=== PATIENT | male | born 1985 | race Hispanic/Latino ===

== ENCOUNTER 2018-10-04 16:03 | Emergency (ER) | payer SELFPAY ==
[2018-10-04] MEDS ORDERED: NA CHLORIDE 0.9% 2,000 ML ONE (16:33)
[2018-10-04 16:44] LABS: Absolute Lymphocytes (CBC) 0.3 K/uL (0.7-4.9); Basophils % 0.2 % (0-1.3); Eosinophils % 3.4 % (0-4.4); Hematocrit 39.4 % (39.6-49.0); Lymphocytes % 3.6 % (15.3-44.8); MPV 7.6 fL (7.6-11.3); Monocytes % 10.6 % (3.3-12.3); RBC Red Blood Cell Count 4.47 M/uL (4.33-5.43)
[2018-10-04] MEDS ORDERED: ACETAMINOPHEN 500 MG TAB ONE (16:48)
[2018-10-04] MEDS ORDERED: CEFTRIAXONE/SWI 1gm 1 GM/10 ML SYR ONE (16:48)
[2018-10-04 17:05] LABS: ALT/SGPT 17 U/L (12-78); AST/SGOT 13 U/L (15-37); Albumin 3.3 g/dL (3.4-5.0); Alkaline Phosphatase 108 U/L (45-117); BUN Blood Urea Nitrogen 18 mg/dL (7-18); Bicarbonate 24 mmol/L (21-32); Bilirubin Direct 0.1 mg/dL (0-0.2); Bilirubin Total 0.4 mg/dL (0.2-1.0); CKMB Creatine Kinase MB < 1.0 ng/mL (0.3-3.6); Creatine Phosphokinase 52 U/L (39-308); Glucose Level 126 mg/dL (74-106); Lipase 95 U/L (73-393); Potassium 3.7 mmol/L (3.5-5.1); Sodium Level 141 mmol/L (136-145); Troponin (Emerg Dept Use Only) < 0.02 ng/mL (0.0-0.045)
[2018-10-04 17:08] LABS: Urine Blood 2+ (NEG); Urine Glucose NEGATIVE (NEG); Urine Protein 2+ (NEG); Urine Specific Gravity >1.030 (1.005-1.030)
[2018-10-04 17:09] LABS: Protime INR 1.21
[2018-10-04 17:11] LABS: Urine Bacteria >50 /HPF (NONE SEEN); Urine Culture Reflex Order NOT NEEDED
--- NOTE | 2018-10-04 17:36 | RAD REPORT ---
EXAM DESCRIPTION: [place] Single View10/04/2018 4:41 pm CLINICAL HISTORY: fever COMPARISON: none FINDINGS: The lungs appear clear of acute infiltrate. The heart is normal size IMPRESSION: No acute abnormalities displayed
--- NOTE | 2018-10-04 18:04 | RAD REPORT ---
EXAM DESCRIPTION: CT - Abdomen Pelvis Wo Contrast - 10/04/2018 5:27 pm CLINICAL HISTORY: Abdominal pain dysuria COMPARISON: None TECHNIQUE: Computed axial tomography of the abdomen and pelvis was obtained. IV and oral contrast we re not requested. All CT scans are performed using dose optimization technique as appropriate and may include automated exposure control or mA/KV adjustment according to patient size. FINDINGS: The evaluation of solid organs, vessels and bowel is limited secondary to the lack of con trast administration. A 3 centimeter staghorn calculus. Left kidney is enlarged. . Dilated calices with stranding in the pe rirenal fat. This has the appearance of xanthogranulomatous pyelonephritis. Mild dilatation left yee l pelvis 1 centimeter calculus right renal pelvis with mild hydronephrosis. A couple of air bubbles are presen t within the collecting system and right ureter. 2.3 centimeter bladder calculus. Left periureteral s tranding A large amount stool is present throughout the colon. The rectum is distended with stool. IMPRESSION: 1 centimeter right renal calculus resulting in mild right hydronephrosis. Air bubbles w ithin the collecting system and right ureter consistent with infection. Left xanthogranulomatous pyelonephritis Bladder calculus Fecal impaction suspected
[2018-10-04] MEDS ORDERED: NA CHLORIDE 0.9% 1,000 ML ONE (18:14)
--- NOTE | 2018-10-04 18:28 | ER ---
Nurse's Notes [facility] Name: Neo Austin Age: 32 yrs Sex: Male : 1985 Arrival Date: 10/04/2018 Time: 16:04 Bed 5 Private MD: Diagnosis: Hydronephrosis with right renal calculous;Urosepsis;Left xanthogranulomatous pyelonephritis;Fecal impaction Presentation: 10/04 16:08 Presenting complaint: Burning with urination and subjective fever x 2 days. Transition hb of care: patient was not received from another setting of care. Onset of symptoms was October 03, 2018. Risk Assessment: Do you want to hurt yourself or someone else? Patient reports no desire to harm self or others. Care prior to arrival: None. 16:08 Method Of Arrival: Wheelchair hb 16:08 Acuity: SPRING 2 hb Historical: - Allergies: 16:11 No Known Allergies; hb - Home Meds: 16:11 None [Active]; hb - PMHx: 16:11 None; hb - PSHx: 16:11 None; hb - Immunization history:: Adult Immunizations up to date. - Social history:: Smoking status: Patient/guardian denies using tobacco. - Ebola Screening: : No symptoms or risks identified at this time. Screenin:53 Abuse screen: Denies threats or abuse. Denies injuries from another. Nutritional aj screening: No deficits noted. Tuberculosis screening: No symptoms or risk factors identified. Fall Risk None identified. Assessment: 16:53 General: Appears in no apparent distress. comfortable, Behavior is calm, cooperative, aj appropriate for age. Pain: Complains of pain in face and scalp. Neuro: Level of Consciousness is awake, alert, obeys commands, Oriented to person, place, time, situation, Appropriate for age. Respiratory: Airway is patent Respiratory effort is even, unlabored, Respiratory pattern is regular, symmetrical. Derm: Skin is intact, is healthy with good turgor, Skin is pink, warm \T\ dry. normal. 19:00 General: Appears in no apparent distress. comfortable, Behavior is calm, cooperative, rr5 appropriate for age. Pain: Denies pain. Neuro: Level of Consciousness is awake, alert, obeys commands, Oriented to person, place, time, situation, Appropriate for age Facial symmetry appears normal, paraplegic. 19:00 Cardiovascular: Capillary refill < 3 seconds Patient's skin is warm and dry. rr5 Respiratory: Airway is patent Respiratory effort is even, unlabored, Respiratory pattern is regular, symmetrical. GI: No signs and/or symptoms were reported involving the gastrointestinal system. : Reports burning with urination, pain with urination. EENT: No signs and/or symptoms were reported regarding the EENT system. Derm: Skin is intact, dry wound sacral and left and right trochanteric area Skin temperature is warm. Musculoskeletal: Capillary refill < 3 seconds, paraplegic. 19:45 Reassessment: unable to insert Judge catheter coud used still positive resistance ED rr5 provider aware. 20:10 Reassessment: Vitaliy from pending sale to [facility] accepted the case. rr5 20:27 Reassessment: Patient appears in no apparent distress at this time. Patient is alert, rr5 oriented x 3, equal unlabored respirations, skin warm/dry/pink. awaiting for EMS transport no complaints made. 20:58 Reassessment: Patient appears in no apparent distress at this time. Patient is alert, rr5 oriented x 3, equal unlabored respirations, skin warm/dry/pink. endorsed to [facility] vitally stable, breathing spontaneously at room air. IV cannula G20 at right forearm intact ongoing NS at 125ml/hr and vancomycin 1G/IV infusing well. Vital Signs: 16:09 BP 84 / 50; Pulse 132; Resp 20; Temp 101.7(TE); Pulse Ox 97% on R/A; Weight 68.04 kg; hb Height 5 ft. 5 in. (165.10 cm); Pain 7/10; 17:11 BP 97 / 52; Pulse 106; Resp 21; Temp 99.0(O); Pulse Ox 100% on R/A; aj 17:56 BP 91 / 53; Pulse 90; Resp 20 S; Pulse Ox 100% on R/A; iw 18:56 BP 131 / 84; Pulse 102; Resp 18; Pulse Ox 99% on R/A; aj 20:00 BP 125 / 75; Pulse 110; Resp 19; Temp 99.2; Pulse Ox 99% ; rr5 21:00 BP 95 / 60; Pulse 108; Resp 19; Pulse Ox 99% on R/A; rr5 16:09 Body Mass Index 24.96 (68.04 kg, 165.10 cm) hb ED Course: 16:04 Patient arrived in ED. as 16:09 Triage completed. hb 16:09 Arm band placed on. hb 16:14 Amy Sneed, RN is Primary Nurse. aj 16:18 James Guerrero NP is PHCP. pm1 16:18 Sudheer Grewal MD is Attending Physician. pm1 16:29 Radiology exam delayed due to lab results not completed at this time. (BUN/Creatinine). sj 16:40 Chest Single View XRAY In Process Unspecified. EDMS 16:53 Patient has correct armband on for positive identification. aj 16:53 Inserted saline lock: 22 gauge in right antecubital area, using aseptic technique. aj Blood collected. 17:06 Radiology exam delayed due to lab results not completed at this time. (BUN/Creatinine). nj 17:28 Abdomen In Process Unspecified. EDMS 18:31 initiated a transfer with Amber Gayle RN from the [facility]. eb 19:04 Aaron Tavera, RN is Primary Nurse. rr5 21:35 No provider procedures requiring assistance completed. Patient transferred, IV remains rr5 in place. intact, No redness/swelling at site. Administered Medications: 16:52 Drug: NS 0.9% (30 ml/kg) 30 ml/kg Route: IV; Rate: bolus; Site: right antecubital; aj 17:15 Follow up: Response: No adverse reaction; Temperature is decreased; IV Status: Infusion aj continued; IV Intake: 1000ml 16:52 Drug: Rocephin 1 grams Route: IV; Rate: calculated rate; Site: right antecubital; aj 17:15 Follow up: Response: No adverse reaction; IV Status: Completed infusion; IV Intake: 10mlaj 16:52 Drug: Tylenol 1000 mg Route: PO; aj 17:15 Follow up: Response: Temperature is decreased aj 18:01 Drug: NS 0.9% 1000 ml Route: IV; Rate: 125 ml/hr; Site: right forearm; iw 19:11 Drug: Gentamicin 1 mg/kg Route: IVPB; Infused Over: 30 mins; Site: right antecubital; rr5 19:49 Follow up: Response: No adverse reaction; IV Status: Completed infusion; IV Intake: rr5 100ml 19:49 Drug: Meropenem 1 grams Route: IV; Rate: calculated rate; Site: right forearm; rr5 20:20 Follow up: Response: No adverse reaction; IV Status: Completed infusion; IV Intake: rr5 100ml 20:24 Dru grams of (vancoMYCIN 1 grams, NS 0.9% 250 ml) Route: IVPB; Infused Over: 2 hrs; rr5 Site: right forearm; Intake: 17:15 IV: 1000ml; Total: 1000ml. aj 17:15 IV: 10ml; Total: 1010ml. aj 19:49 IV: 100ml; Total: 1110ml. rr5 20:20 IV: 100ml; Total: 1210ml. rr5 Outcome: 18:28 ER care complete, transfer ordered by MD. pm1 21:35 Transferred by ground EMS to [facility], Transfer form completed. rr5 21:35 Condition: stable 21:35 Instructed on the need for transfer. 21:39 Patient left the ED. rr5 Signatures: Dispatcher [employer] EDAmy Glaser RN Taylor Landis Amelia as Williams, Irene, RN RN iw Marinas, Patrick, WAYNE GARAGE WORKER pm1 Dorothy Montgomery RN RN hb Jordan, Nathan nj Botello, Elizabeth eb Roque, Raymond RN RN rr5 Corrections: (The following items were deleted from the chart) 17:14 17:11 BP 97 / 52; Pulse 106bpm; Resp 21bpm; Pulse Ox 100% RA; evan gordon
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
[2018-10-04] MEDS ORDERED: GENTAMICIN IVPB ONE (19:00)
[2018-10-04] MEDS ORDERED: NA CHLORIDE 0.9% IVPB ONE (19:00)
[2018-10-04] MEDS ORDERED: Meropenem 1 GM/100 ML BAG ONE (19:42)
[2018-10-04] MEDS ORDERED: NA CHLORIDE 0.9% 250 ML ONE (20:10)
[2018-10-04] MEDS ORDERED: VANCOMYCIN 1 GM/VIAL ONE (20:10)
--- NOTE | 2018-10-05 15:39 | EKG ---
Test Date: 2018-10-04 Test Time: 16:27:54 Auto Bumper Mechanic: POLINA MEASUREMENT RESULTS: Intervals: Rate: 121 OK: 162 QRSD: 86 QT: 314 QTc: 445 [place]: P: 62 OK: 162 QRS: 81 T: 41 INTERPRETIVE STATEMENTS: Sinus tachycardia Nonspecific T wave abnormality Abnormal ECG No previous ECG available for comparison Electronically Signed On 10-05-18 15:35:40 CDT by Chad Stein
== END 2018-10-04 21:39 | disposition short-term general hospital (02) ==
LOC: ER 16:03
DX: N13.30 Unspecified hydronephrosis (principal); N20.0 Calculus of kidney; D76.3 Other histiocytosis syndromes
CPT/HCPCS: 36415; 71045; 74176; 80048; 80076; 81003; 81015; 82550; 82553; 83605; 83690; 84145; 84484; 85025; 85610; 85730; 87040; 87077; 87086; 87088; 87186; 93005; 99285; J0696; J1580; J2185; J7030

== ENCOUNTER 2018-12-03 14:07 | Emergency (ER) | payer SELFPAY ==
--- OUTSIDE RECORDS SUMMARY | 2018-12-03 14:10 | XMS REPORT | Clinical Summary ---
:1985 Author Organization [facility] Address [address] [place] [address] Care Team Providers Name Role Phone Pcp, No Primary Care Provider Unavailable Allergies No Known Allergies Medications Medication Sig Dispensed Refills Start Date End Date Status acetaminophen Take 325 mg by 0 Active (TYLENOL) 325 MG mouth as needed tablet for Pain. ciprofloxacin HCl Take 1 tablet (750 42 tablet 0 10/13/2018 11/03/2018 (CIPRO) 750 MG mg total) by mouth tablet every 12 (twelve) hours for 21 days. sulfamethoxazole-tri Take 1 tablet (160 42 tablet 0 10/13/2018 11/03/2018 methoprim (BACTRIM mg of trimethoprim DS) 800-160 mg per total) by mouth 2 tablet (two) times daily for 21 days. 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/07/2018 Fever 10/07/2018 [place]aghorn calculus 10/07/2018 Nephrostomy status 10/07/2018 Hyponatremia 10/07/2018 Confined to bed 10/07/2018 Hypomagnesemia 10/06/2018 Acute blood loss anemia 10/06/2018 Leukocytosis 10/06/2018 Sepsis secondary to UTI 10/04/2018 Hydronephrosis with urinary obstruction due to renal calculus 10/04/2018 Encounters Date Type Specialty Care Team Description 10/04/2018 - [facility] Internal Teja, Kriag Acute blood loss anemia ; 10/13/2018 Encounter Medicine MD Mildred Hydronephrosis with urinary obstruction due to renal calculus; Nancy Silvermanagnpam; MD Mikie Leukocytosis, unspecified type; Rosanna Bowles Sepsis secondary to UTI (HCC); MD Graciela Hypophosphatemia; Paraplegia (HCC); Sepsis, due to unspecified organism (HCC); Nausea and vomiting, intractability of vomiting not specified, unspecified vomiting type; Nephrolithiasis after 12/02/2017 Social History Tobacco Use Types Packs/Day Years Used Date Light Tobacco Smoker Smokeless Tobacco: Never Used Alcohol Use Drinks/Week oz/Week Comments No Alcohol Habits Answer Date Recorded How often do you have a drink containing alcohol? Never 10/05/2018 How many drinks containing alcohol do you have on a typical Not asked day when you are drinking? How often do you have six or more drinks on one occasion? Not asked Sex Assigned at Date Recorded Not on file Job Start Date Occupation Industry Not on file Not on file Not on file Travel History Travel Start Travel End No recent travel history available. Last Filed Vital Signs Vital Sign Reading Time Taken Blood Pressure 87/53 10/13/2018 3:40 PM CDT Pulse 91 10/13/2018 7:30 PM CDT Temperature 35.6 C (96.1 F) 10/13/2018 8:15 AM CDT Respiratory Rate 18 10/13/2018 7:30 PM CDT Oxygen Saturation 98% 10/13/2018 7:30 PM CDT Inhaled Oxygen Concentration 21% 10/09/2018 5:50 PM CDT Weight 56.6 kg (124 lb 12.5 oz) 10/08/2018 6:00 AM CDT Height 167.6 cm (5' 6") 10/05/2018 12:00 AM CDT Body Mass Index 20.14 10/08/2018 6:00 AM CDT Plan of Treatment Not on file Procedures Procedure Name Priority Date/Time Associated Comments Diagnosis REPORT OF PROCEDURE - 10/15/2018 9:41 ENDOSCOPY SCAN AM CDT RHYTHM STRIP - SCAN 10/15/2018 9:41 AM CDT BLOOD CULTURE Routine 2018 6:05 Results for this PM CDT procedure are in the results section. BLOOD CULTURE Routine 2018 6:04 Results for this PM CDT procedure are in the results section. (CELLAVISION MANUAL Routine 2018 4:33 Results for this DIFF) AM CDT procedure are in the results section. CBC W/PLT COUNT & Routine 2018 4:33 Results for this AUTO DIFFERENTIAL AM CDT procedure are in the results section. MAGNESIUM Routine 2018 4:33 Results for this AM CDT procedure are in the results section. CBC W/PLT COUNT & Routine 2018 4:33 Results for this AUTO DIFFERENTIAL AM CDT procedure are in the results section. CALCIUM, IONIZED Routine 2018 4:33 Results for this AM CDT procedure are in the results section. BASIC METABOLIC PANEL Routine 2018 4:33 Results for this (7) AM CDT procedure are in the results section. VANCOMYCIN LEVEL, Timed 10/10/2018 1:14 Results for this TROUGH PM CDT procedure are in the results section. (CELLAVISION MANUAL Routine 10/10/2018 5:35 Results for this DIFF) AM CDT procedure are in the results section. CBC W/PLT COUNT & Routine 10/10/2018 5:35 Results for this AUTO DIFFERENTIAL AM CDT procedure are in the results section. MAGNESIUM Routine 10/10/2018 5:35 Results for this AM CDT procedure are in the results section. CBC W/PLT COUNT & Routine 10/10/2018 5:35 Results for this AUTO DIFFERENTIAL AM CDT procedure are in the results section. CALCIUM, IONIZED Routine 10/10/2018 5:35 Results for this AM CDT procedure are in the results section. BASIC METABOLIC PANEL Routine 10/10/2018 5:35 Results for this (7) AM CDT procedure are in the results section. VANCOMYCIN LEVEL, Timed 10/10/2018 5:35 Results for this TROUGH AM CDT procedure are in the results section. (CELLAVISION MANUAL Routine 10/09/2018 4:07 Results for this DIFF) AM CDT procedure are in the results section. CBC W/PLT COUNT & Routine 10/09/2018 4:07 Results for this AUTO DIFFERENTIAL AM CDT procedure are in the results section. CBC W/PLT COUNT & Routine 10/09/2018 4:07 Results for this AUTO DIFFERENTIAL AM CDT procedure are in the results section. CALCIUM, IONIZED Routine 10/09/2018 4:07 Results for this AM CDT procedure are in the results section. BASIC METABOLIC PANEL Routine 10/09/2018 4:07 Results for this (7) AM CDT procedure are in the results section. PHOSPHORUS Routine 10/09/2018 4:07 Results for this AM CDT procedure are in the results section. MAGNESIUM Routine 10/09/2018 4:07 Results for this AM CDT procedure are in the results section. PHOSPHORUS Routine 10/08/2018 6:01 Results for this PM CDT procedure are in the results section. MAGNESIUM Routine 10/08/2018 6:01 Results for this PM CDT procedure are in the results section. BASIC METABOLIC PANEL Routine 10/08/2018 6:01 Results for this (7) PM CDT procedure are in the results section. VANCOMYCIN LEVEL, Timed 10/08/2018 11:04 Results for this TROUGH AM CDT procedure are in the results section. PHOSPHORUS Routine 10/08/2018 11:04 Results for this AM CDT procedure are in the results section. MAGNESIUM Routine 10/08/2018 11:04 Results for this AM CDT procedure are in the results section. XR ABDOMEN 1 VIEW STAT 10/08/2018 10:16 Results for this AM CDT procedure are in the results section. PHOSPHORUS Routine 10/08/2018 4:29 Results for this AM CDT procedure are in the results section. MAGNESIUM Routine 10/08/2018 4:29 Results for this AM CDT procedure are in the results section. BASIC METABOLIC PANEL Routine 10/08/2018 4:29 Results for this (7) AM CDT procedure are in the results section. CBC (HEMOGRAM ONLY) Routine 10/08/2018 4:29 Results for this AM CDT procedure are in the results section. POCT-GLUCOSE METER Routine 10/08/2018 12:05 Results for this AM CDT procedure are in the results section. PHOSPHORUS Routine 10/07/2018 10:40 Results for this PM CDT procedure are in the results section. MAGNESIUM Routine 10/07/2018 10:40 Results for this PM CDT procedure are in the results section. BASIC METABOLIC PANEL Routine 10/07/2018 10:40 Results for this (7) PM CDT procedure are in the results section. PHOSPHORUS Routine 10/07/2018 12:42 Results for this PM CDT procedure are in the results section. MAGNESIUM Routine 10/07/2018 12:42 Results for this PM CDT procedure are in the results section. BASIC METABOLIC PANEL Routine 10/07/2018 12:42 Results for this (7) PM CDT procedure are in the results section. PHOSPHORUS Routine 10/07/2018 7:08 Results for this AM CDT procedure are in the results section. MAGNESIUM Routine 10/07/2018 7:08 Results for this AM CDT procedure are in the results section. BASIC METABOLIC PANEL Routine 10/07/2018 7:08 Results for this (7) AM CDT procedure are in the results section. CBC (HEMOGRAM ONLY) Routine 10/07/2018 5:01 Results for this AM CDT procedure are in the results section. PHOSPHORUS Routine 10/06/2018 11:56 Results for this PM CDT procedure are in the results section. MAGNESIUM Routine 10/06/2018 11:56 Results for this PM CDT procedure are in the results section. BASIC METABOLIC PANEL Routine 10/06/2018 11:56 Results for this (7) PM CDT procedure are in the results section. PHOSPHORUS Routine 10/06/2018 6:28 Results for this PM CDT procedure are in the results section. MAGNESIUM Routine 10/06/2018 6:28 Results for this PM CDT procedure are in the results section. BASIC METABOLIC PANEL Routine 10/06/2018 6:28 Results for this (7) PM CDT procedure are in the results section. CREATININE, RANDOM Routine 10/06/2018 12:43 Results for this URINE PM CDT procedure are in the results section. SODIUM, RANDOM URINE Routine 10/06/2018 12:43 Results for this PM CDT procedure are in the results section. OSMOLALITY, URINE Routine 10/06/2018 12:43 Results for this PM CDT procedure are in the results section. PHOSPHORUS Routine 10/06/2018 10:48 Results for this AM CDT procedure are in the results section. VANCOMYCIN LEVEL, Timed 10/06/2018 10:48 Results for this TROUGH AM CDT procedure are in the results section. MAGNESIUM Routine 10/06/2018 10:48 Results for this AM CDT procedure are in the results section. BASIC METABOLIC PANEL Routine 10/06/2018 10:48 Results for this (7) AM CDT procedure are in the results section. BASIC METABOLIC PANEL Routine 10/06/2018 6:03 Results for this (7) AM CDT procedure are in the results section. PHOSPHORUS Routine 10/06/2018 6:03 Results for this AM CDT procedure are in the results section. MAGNESIUM Routine 10/06/2018 6:03 Results for this AM CDT procedure are in the results section. CALCIUM, IONIZED Routine 10/06/2018 3:08 Results for this AM CDT procedure are in the results section. CBC (HEMOGRAM ONLY) Routine 10/06/2018 3:08 Results for this AM CDT procedure are in the results section. CBC (HEMOGRAM ONLY) Routine 10/05/2018 11:06 Results for this PM CDT procedure are in the results section. MAGNESIUM Routine 10/05/2018 11:06 Results for this PM CDT procedure are in the results section. PHOSPHORUS Routine 10/05/2018 11:06 Results for this PM CDT procedure are in the results section. BASIC METABOLIC PANEL Routine 10/05/2018 11:06 Results for this (7) PM CDT procedure are in the results section. IR PERCUTANEOUS Routine 10/05/2018 8:10 Results for this NEPHROSTOMY TUBE PM CDT procedure are in PLACEMENT the results section. URINE CULTURE Routine 10/05/2018 7:55 Results for this PM CDT procedure are in the results section. APTT Add-On 10/05/2018 12:50 Results for this PM CDT procedure are in the results section. PROTHROMBIN TIME/INR STAT 10/05/2018 12:50 Results for this PM CDT procedure are in the results section. PHOSPHORUS Routine 10/05/2018 12:28 Results for this PM CDT procedure are in the results section. MAGNESIUM Routine 10/05/2018 12:28 Results for this PM CDT procedure are in the results section. BASIC METABOLIC PANEL Routine 10/05/2018 12:28 Results for this (7) PM CDT procedure are in the results section. LACTIC ACID, VENOUS Routine 10/05/2018 3:43 Results for this AM CDT procedure are in the results section. CBC W/PLT COUNT & Routine 10/05/2018 3:37 Results for this AUTO DIFFERENTIAL AM CDT procedure are in the results section. PHOSPHORUS Routine 10/05/2018 3:37 Results for this AM CDT procedure are in the results section. MAGNESIUM Routine 10/05/2018 3:37 Results for this AM CDT procedure are in the results section. BASIC METABOLIC PANEL Routine 10/05/2018 3:37 Results for this (7) AM CDT procedure are in the results section. CBC W/PLT COUNT & Routine 10/05/2018 3:37 Results for this AUTO DIFFERENTIAL AM CDT procedure are in the results section. BLOOD CULTURE Routine 10/05/2018 12:25 Results for this AM CDT procedure are in the results section. CBC W/PLT COUNT & Routine 10/04/2018 11:30 Results for this AUTO DIFFERENTIAL PM CDT procedure are in the results section. HEPATIC FUNCTION Routine 10/04/2018 11:30 Results for this PANEL PM CDT procedure are in the results section. URINALYSIS W/ REFLEX Routine 10/04/2018 11:30 Results for this URINE CULTURE PM CDT procedure are in the results section. PHOSPHORUS Routine 10/04/2018 11:30 Results for this PM CDT procedure are in the results section. MAGNESIUM Routine 10/04/2018 11:30 Results for this PM CDT procedure are in the results section. LACTIC ACID, VENOUS Routine 10/04/2018 11:30 Results for this PM CDT procedure are in the results section. CALCIUM, IONIZED Routine 10/04/2018 11:30 Results for this PM CDT procedure are in the results section. BASIC METABOLIC PANEL Routine 10/04/2018 11:30 Results for this (7) PM CDT procedure are in the results section. CBC W/PLT COUNT & Routine 10/04/2018 11:30 Results for this AUTO DIFFERENTIAL PM CDT procedure are in the results section. URINE CULTURE Routine 10/04/2018 11:30 Results for this PM CDT procedure are in the results section. BLOOD CULTURE Routine 10/04/2018 11:29 Results for this PM CDT procedure are in the results section. after 12/02/2017 Results EKG-SCANNED (10/15/2018 9:41 AM CDT) Narrative Performed At RHYTHM STRIP - SCAN (10/15/2018 9:41 AM CDT) Narrative Performed At Blood Culture - Routine (Right Venipuncture) (2018 6:05 PM CDT)Only the most recent of4 resultswithin the time period is included. Result No growth in 5 days [facility] Specimen Blood Performing Organization Address City/State/Zipcode Phone Number [facility] [address] [place] [address] CENTER Manual Differential (2018 4:33 AM CDT)Only the most recent of3 resultswithin the time period is included. % Neutros 35 % [facility] % Lymphs 31 % [facility] % Monos 20 % [facility] % Eos 10 % [facility] % Baso 1 % [facility] % Atypical Lymphs 3 (H) 0 - 0 % [facility] # Neutros 1.44 (L) 1.78 - 5.38 K/ul [facility] # Lymphs 1.27 (L) 1.32 - 3.57 K/ul [facility] # Monos 0.82 0.30 - 0.82 K/uL [facility] # Eos 0.41 0.04 - 0.54 K/uL [facility] # Baso 0.04 0.01 - 0.08 K/uL [facility] # Atypical Lymphs 0.12 (H) 0.00 - 0.00 K/uL [facility] Total Counted 100 [facility] Smudge Cells Present [facility] Giant [facility]let Present [facility] Polychromasia 1+ few [facility] Anisocytosis 1+ few [facility] Microcytes 1+ few [facility] Platelet Conc Adequate [facility] Specimen Blood Narrative Performed At Received comment: [facility] User comments: Slide comments: Performing Organization Address City/State/Zipcode Phone Number [facility] [address] [place] [address] [phone] CENTER Calcium, Ionized (2018 4:33 AM CDT)Only the most recent of5 resultswithin the time period is included. Calcium, Ion 1.11 (L) 1.12 - 1.27 mmol/L [facility] pH, Blood 7.41 [facility] Specimen Blood Performing Organization Address City/State/Zipcode Phone Number [address] [address] CENTER CBC with platelet count + automated diff (2018 4:33 AM CDT)Only the most recent of5 resultswithin the time period is included. WBC 4.1 3.5 - 10.5 K/L [facility] RBC 4.24 (L) 4.63 - 6.08 M/L [facility] Hemoglobin 12.1 (L) 13.7 - 17.5 GM/DL [facility] Hematocrit 36.6 (L) 40.1 - 51.0 % [facility] MCV 86.3 79.0 - 92.2 fL [facility] MCH 28.5 25.7 - 32.2 pg [facility] MCHC 33.1 32.3 - 36.5 GM/DL [facility] RDW 14.1 11.6 - 14.4 % [facility] Platelets 202 150 - 450 K/CU MM [facility] MPV 9.9 9.4 - 12.4 fL [facility] nRBC 0 0 - 0 /100 WBC [facility] Specimen Blood Performing Organization Address City/State/Zipcode Phone Number [address] [address] CENTER Magnesium (2018 4:33 AM CDT)Only the most recent of17 resultswithin the time period is included. Magnesium 1.6 1.6 - 2.6 mg/dL [facility] Specimen Blood Performing Organization Address City/[facility]/Zipcode Phone Number [address] [address] [phone] [place] Basic Metabolic Panel (2018 4:33 AM CDT)Only the most recent of16 resultswithin the time period is included. Sodium 135 (L) 136 - 145 meq/L [facility] Potassium 4.6 3.5 - 5.1 meq/L [facility] Chloride 102 98 - 107 meq/L [facility] CO2 26 22 - 29 meq/L [facility] BUN 6 (L) 7 - 21 mg/dL [facility] Creatinine 0.83 0.57 - 1.25 mg/dL [facility] Glucose 93 70 - 105 mg/dL [facility] Calcium 8.9 8.4 - 10.2 mg/dL [facility] EGFR 107Comment: ESTIMATED GFR IS mL/min/1.73 sq m [facility] NOT ACCURATE CREATININE [facility] CLEARANCE IN PREDICTING GLOMERULAR FILTRATION RATE. ESTIMATED GFR IS NOT APPLICABLE FOR DIALYSIS PATIENTS. Specimen Blood Performing Organization Address [facility]/[place] [address] [place] Vancomycin level, trough (10/10/2018 1:14 PM CDT)Only the most recent of4 resultswithin the time period is included. Vancomycin Tr 18.9 10.0 - 20.0 ug/mL [facility] Specimen Blood Performing Organization Address City/[facility] Hospital[facility] Phone Number [address] [phone] CENTER Phosphorus (10/09/2018 4:07 AM CDT)Only the most recent of15 resultswithin the time period is included. Phosphorus 2.2 (L)Comment: Specimen 2.3 - 4.7 mg/dL [facility] slightly hemolyzed [facility] Specimen Blood Performing Organization Address City/[facility] Hospitalcode Phone Number [facility] [address], [place] [id number] [phone] CENTER XR abdomen / KUB 1 view (10/08/2018 10:16 AM CDT) Specimen Narrative Performed At FINAL REPORT [employer] RAD, ABDOMEN/KUB 1 VIEW AP CLINICAL INDICATION:nausea, vomiting COMPARISON: Correlation to CT examination October 04, 2018 obtained by [employer] TECHNIQUE: Single, frontal radiograph of the abdomen. IMPRESSION: The bowel gas pattern is nonspecific, but nonobstructive. A moderate stool burden is present. No abnormal mass or ascites is detected. Large stones are present bilaterally and collecting systems, incompletely viewed. Bilateral percutaneous nephrostomy tubes are present, and have been placed in the interval since the prior CT. The regional skeleton is intact. Signed: JR Lynch Robert MD Report Verified Date/Time:10/08/2018 10:27:29 Reading Location: [address] Neuro Reading Room Procedure Note Interface, External Ris In - 10/08/2018 10:35 AM CDT FINAL REPORT RAD, ABDOMEN/KUB 1 VIEW AP CLINICAL INDICATION: nausea, vomiting COMPARISON: Correlation to CT examination October 04, 2018 obtained by [employer] TECHNIQUE: Single, frontal radiograph of the abdomen. IMPRESSION: The bowel gas pattern is nonspecific, but nonobstructive. A moderate stool burden is present. No abnormal mass or ascites is detected. Large stones are present bilaterally and collecting systems, incompletely viewed. Bilateral percutaneous nephrostomy tubes are present, and have been placed in the interval since the prior CT. The regional skeleton is intact. Signed: JR Lynch Robert MD Report Verified Date/Time: 10/08/2018 10:27:29 Reading Location: [address] Neuro Reading Room Performing Organization Address City/State/Zipcode Phone Number [phone] CBC (Hemogram only) (10/08/2018 4:29 AM CDT)Only the most recent of4 resultswithin the time period is included. WBC 4.8 3.5 - 10.5 K/L [facility] RBC 4.25 (L) 4.63 - 6.08 M/L [facility] Hemoglobin 12.2 (L) 13.7 - 17.5 GM/DL [facility] Hematocrit 36.8 (L) 40.1 - 51.0 % [facility] MCV 86.6 79.0 - 92.2 fL [facility] MCH 28.7 25.7 - 32.2 pg [facility] MCHC 33.2 32.3 - 36.5 GM/DL [facility] RDW 13.9 11.6 - 14.4 % [facility] Platelets 157 150 - 450 K/CU MM [facility] MPV 9.9 9.4 - 12.4 fL [facility] nRBC 0 0 - 0 /100 WBC [facility] Specimen Blood Performing Organization Address City/State/Zipcode Phone Number [address] [address] [place] POC-Glucose meter (10/08/2018 12:05 AM CDT) POC-Glucose Meter 81Comment: TESTED AT 70 - 110 mg/dL [address] [address] Specimen Blood Performing Organization Address City/[facility]/Zipcode Phone Number [address] [address] [place] Sodium, random urine (10/06/2018 12:43 PM CDT) Sodium Urine 90 meq/L [facility] Specimen Urine Narrative Performed At Reference Range: No Normals [facility] Performing Organization Address City/State/Zipcode Phone Number [address] [address] [place] Osmolality, urine (10/06/2018 12:43 PM CDT) Osmolality, Ur 223 40-1,400 mOsm/kg [facility] Specimen Urine Performing Organization Address City/State/Zipcode Phone Number [address] [address] [place] Creatinine, random urine (10/06/2018 12:43 PM CDT) Creatinine, Ur 8.6 mg/dL [facility] Specimen Urine Narrative Performed At Reference Range: No Normals [facility] Performing Organization Address [facility]/Zipcode Phone Number [address] [address] [phone] [place] IR Percutaneous Nephrostomy - Ext. Drain Placement (10/05/2018 8:10 PM CDT) Specimen Narrative Performed At FINAL REPORT [employer] Fluoroscopic guided bilateral nephrostomy tube placement. Clinical History: Bilateral obstructive nephrolithiasis and left-sided XGP. Modality: Sonography and fluoroscopy Contact Printer Dry Film:Yovanny Buckner MD. Machine Umbrella Tipper:MD Ranjit (Fellow). Sedation: Moderate sedation was administered. 0.5 mg of Versed and 25 mcg of fentanyl IV was used for moderate sedation monitored under my direction. Total intra-service time of sedation [id number]. The patient's vital signs were monitored throughout the procedure and recorded in the patient's medical record by the nurse. Estimated Blood Loss:Less than 5 cc. Specimen: None. Fluoroscopy Time: 9.1 min. Reference Air Kerma (Ka, r): 23.5 mGy. Technique: Informed written consent was obtained. Discussion of risks, benefits, and alternatives were made with the patient. The patient expressed understanding and agreed to proceed.A universal timeout was performed prior to starting the procedure.All elements maximal sterile barrier technique was utilized for this procedure, including utilization of sterile scrub solution for skin prep, a large sterile sheet to cover the areas of the patient that were not prepped, and hand hygiene, mask, head covering, and sterile gown for performing radiologist and scrub technologist. Initial ultrasound images demonstrate significant left-sided hydronephrosis with echogenic material within the renal calyces/collecting systems compatible with patient's history of XGP. A left lower pole calyx was targeted with ultrasound. Using ultrasound guidance, following acquisition of permanent images, a 21-gauge Chiba needle was advanced into a left lower calyx. Return of purulent appearing urine and contrast injection confirmed intraluminal position. A 0.018 wire was advanced and coiled within the left renal pelvis/collecting system. The Accustick sheath was advanced over the wire Danny gentle nephrostogram was performed. Next a 0.035 Amplatz wire was coiled within the left collecting system. After a small skin incision was made, the soft tissue tract was dilated. A 8.5 Indian drainage catheter was placed into the left renal pelvis, noting that a proper pigtail could not be performed secondary to presence of a staghorn calculus. Contrast injection confirmed position. The catheter was then secured onto the skin with silk suture. Initial ultrasound images demonstrate mild right-sided hydronephrosis. A right mid pole calyx was targeted with ultrasound. Using ultrasound guidance, following acquisition of permanent images, a 21-gauge Chiba needle was advanced into a right mid pole calyx. Return of urine and contrast injection confirmed intraluminal position. A 0.018 wire was advanced into the right renal pelvis. An AccuStick sheath was advanced over wire and gentle nephrostogram was performed. Next a 0.035 Amplatz wire was advanced down the right ureter. The soft tissue tract was dilated. A 8.5 Indian drainage catheter was advanced over wire with pigtail formed within the right renal pelvis. Contrast injection confirmed position. The catheter was secured to the skin with silk suture. Sterile dressings were applied. The patient tolerated the procedure without immediate complication. Findings: 1. Successful placement of a left percutaneous nephrostomy catheter with return of thick, purulent appearing urine with debris compatible with patient's history of XGP. Gentle nephrostogram demonstrates complete obstruction secondary to staghorn calculus. Urine from left nephrostomy was sent for culture. 2. Successful placement of a right persistent nephrostomy catheter with return of serosanguineous urine. Gentle nephrostogram and demonstrates free present suggestive contrast into the urinary bladder. Impression: Successful ultrasound and fluoroscopic guided bilateral percutaneous nephrostomy catheter as detailed above. Signed: Yovanny Buckner MD Report Verified Date/Time:10/06/2018 17:10:22 Reading Location: [facility] P048 Angio Body Reading Room Procedure Note Interface, External Ris In - 10/06/2018 5:12 PM CDT FINAL REPORT Fluoroscopic guided bilateral nephrostomy tube placement. Clinical History: Bilateral obstructive nephrolithiasis and left-sided XGP. Modality: Sonography and fluoroscopy Contact Printer Dry Film: Yovanny Buckner MD. Machine Umbrella Tipper: MD Ranjit (Fellow). Sedation: Moderate sedation was administered. 0.5 mg of Versed and 25 mcg of fentanyl IV was used for moderate sedation monitored under my direction. Total intra-service time of sedation was 45 minutes. The patient's vital signs were monitored throughout the procedure and recorded in the patient's medical record by the nurse. Estimated Blood Loss: Less than 5 cc. Specimen: None. Fluoroscopy Time: 9.1 min. Reference Air Kerma (Ka, r): 23.5 mGy. Technique: Informed written consent was obtained. Discussion of risks, benefits, and alternatives were made with the patient. The patient expressed understanding and agreed to proceed. A universal timeout was performed prior to starting the procedure. All elements maximal sterile barrier technique was utilized for this procedure, including utilization of sterile scrub solution for skin prep, a large sterile sheet to cover the areas of the patient that were not prepped, and hand hygiene, mask, head covering, and sterile gown for performing radiologist and scrub technologist. Initial ultrasound images demonstrate significant left-sided hydronephrosis with echogenic material within the renal calyces/collecting systems compatible with patient's history of XGP. A left lower pole calyx was targeted with ultrasound. Using ultrasound guidance, following acquisition of permanent images, a 21-gauge Chiba needle was advanced into a left lower calyx. Return of purulent appearing urine and contrast injection confirmed intraluminal position. A 0.018 wire was advanced and coiled within the left renal pelvis/collecting system. The Accustick sheath was advanced over the wire Danny gentle nephrostogram was performed. Next a 0.035 Amplatz wire was coiled within the left collecting system. After a small skin incision was made, the soft tissue tract was dilated. A 8.5 Indian drainage catheter was placed into the left renal pelvis, noting that a proper pigtail could not be performed secondary to presence of a staghorn calculus. Contrast injection confirmed position. The catheter was then secured onto the skin with silk suture. Initial ultrasound images demonstrate mild right-sided hydronephrosis. A right mid pole calyx was targeted with ultrasound. Using ultrasound guidance, following acquisition of permanent images, a 21-gauge Chiba needle was advanced into a right mid pole calyx. Return of urine and contrast injection confirmed intraluminal position. A 0.018 wire was advanced into the right renal pelvis. An AccuStick sheath was advanced over wire and gentle nephrostogram was performed. Next a 0.035 Amplatz wire was advanced down the right ureter. The soft tissue tract was dilated. A 8.5 Indian drainage catheter was advanced over wire with pigtail formed within the right renal pelvis. Contrast injection confirmed position. The catheter was secured to the skin with silk suture. Sterile dressings were applied. The patient tolerated the procedure without immediate complication. Findings: 1. Successful placement of a left percutaneous nephrostomy catheter with return of thick, purulent appearing urine with debris compatible with patient's history of XGP. Gentle nephrostogram demonstrates complete obstruction secondary to staghorn calculus. Urine from left nephrostomy was sent for culture. 2. Successful placement of a right persistent nephrostomy catheter with return of serosanguineous urine. Gentle nephrostogram and demonstrates free present suggestive contrast into the urinary bladder. Impression: Successful ultrasound and fluoroscopic guided bilateral percutaneous nephrostomy catheter as detailed above. Signed: Yovanny Buckner MD Report Verified Date/Time: 10/06/2018 17:10:22 Reading Location: [address] Body Reading Room Performing Organization Address City/State/Zipcode Phone Number [facility] Urine culture (10/05/2018 7:55 PM CDT)Only the most recent of2 resultswithin the time period is included. Result >100,000 col/mL Pseudomonas [facility] aeruginosa (A)Comment: This is an [facility]ICAL [facility]ENTER appended report. These organism results have been appended to a previously final verified report. Result >100,000 col/mL Morganella morganii (A) [facility] Comment: [facility] of a second type This is an appended report.These organism results have been appended to a previously final verified report. Result >100,000 col/mL Pseudomonas [facility] aeruginosa (A)Comment: of a second [facility] type Specimen Urine - Urine, Nephrostomy Narrative Performed At [facility] Organism Antibiotic Method Susceptibility Pseudomonas aeruginosa Amikacin <=8: Susceptible Pseudomonas aeruginosa Aztreonam 4: Susceptible Pseudomonas aeruginosa Cefepime <=4: Susceptible Pseudomonas aeruginosa Ceftazidime 2: Susceptible Pseudomonas aeruginosa Ciprofloxacin <=0.5: Susceptible Pseudomonas aeruginosa Doripenem 4: Resistant Pseudomonas aeruginosa Gentamicin <=2: Susceptible Pseudomonas aeruginosa Imipenem >8: Resistant Pseudomonas aeruginosa Levofloxacin <=1: Susceptible Pseudomonas aeruginosa Meropenem 8: Resistant Pseudomonas aeruginosa Piperacillin <16: Susceptible Pseudomonas aeruginosa Piperacillin + Tazobactam <=8: Susceptible Pseudomonas aeruginosa Tobramycin <=2: Susceptible Morganella morganii Amikacin 8: Susceptible Morganella morganii Ampicillin + Sulbactam >=32: Resistant Morganella morganii Aztreonam >=64: Resistant Morganella morganii Cefepime >=64: Resistant Morganella morganii Cefoxitin >=64: Resistant Morganella morganii Ceftazidime >=64: Resistant Morganella morganii Ceftriaxone >=64: Resistant Morganella morganii Ertapenem <=0.5: Susceptible Morganella morganii Gentamicin >=16: Resistant Morganella morganii Levofloxacin >=8: Resistant Morganella morganii Meropenem 2: Susceptible Morganella morganii Nitrofurantoin Resistant Morganella morganii Piperacillin + Tazobactam 32: Resistant Morganella morganii Tetracycline >=16: Resistant Morganella morganii Tobramycin >=16: Resistant Morganella morganii Trimethoprim + Sulfamethoxazole <=20: Susceptible Pseudomonas aeruginosa Amikacin <=8: Susceptible Pseudomonas aeruginosa Aztreonam 16: Resistant Pseudomonas aeruginosa Cefepime <=4: Susceptible Pseudomonas aeruginosa Ceftazidime 4: Susceptible Pseudomonas aeruginosa Ciprofloxacin <=0.5: Susceptible Pseudomonas aeruginosa Doripenem <=0.5: Susceptible Pseudomonas aeruginosa Gentamicin <=2: Susceptible Pseudomonas aeruginosa Imipenem 4: Resistant Pseudomonas aeruginosa Levofloxacin <=1: Susceptible Pseudomonas aeruginosa Meropenem <=0.5: Susceptible Pseudomonas aeruginosa Piperacillin <=16: Susceptible Pseudomonas aeruginosa Piperacillin + Tazobactam 16: Susceptible Pseudomonas aeruginosa Tobramycin <=2: Susceptible Performing Organization Address [facility] Phone Number [address] [address] [place] aPTT (10/05/2018 12:50 PM CDT) PTT 40.2 (H) 22.5 - 36.0 seconds [facility] Specimen Blood Performing Organization Address [facility] Phone Number [address] [address] [phone] [place] Prothrombin time/INR (10/05/2018 12:50 PM CDT) Protime 15.8 (H) 11.9 - 14.2 seconds [facility] INR 1.3 <=5.9 [facility] Specimen Blood Narrative Performed At Effective 08/15/2018: PT Reference Range [facility] Change New: 11.9-14.2Previous: 11.7-14.7 RECOMMENDED COUMADIN/WARFARIN INR THERAPY RANGES STANDARD DOSE: 2.0-3.0Includes: PROPHYLAXIS for venous thrombosis, systemic embolization; TREATMENT for venous thrombosis and/or pulmonary embolus. HIGH RISK: Target INR is 2.5-3.5 for patients wiht mechanical heart valves. Performing Organization Address [facility] Phone Number [address] [address] [place] Lactic acid, venous (10/05/2018 3:43 AM CDT)Only the most recent of2 resultswithin the time period is included. Lactate, Venous 0.9 0.5 - 2.2 mmol/L [facility] Specimen Blood Performing Organization Address [facility] Phone Number [address] [address] CENTER Urinalysis w/Microscopic + Reflex to Culture (10/04/2018 11:30 PM CDT) Color, UA Yellow [facility] Clarity, UA Hazy [facility] Specific Campbell, UA 1.011 1.001 - 1.035 [facility] pH, UA 6.5 5.0 - 8.0 [facility] Protein, UA 50 mg/dL (A) Negative [facility] Glucose, UA Negative Negative [facility] Ketones, UA Negative Negative [facility] Bilirubin, UA Negative Negative [facility] Blood, UA Moderate (A) Negative [facility] Nitrite, UA Negative Negative [facility] Leukocytes, UA Large (A) Negative [facility] Urobilinogen, UA 4.0 (H) 0.2 - 1.0 mg/dL [facility] RBC, UA 53 /HPF [facility] WBC, UA 228 /HPF [facility] Bacteria, UA Rare [facility] Mucus Rare [facility] Squam Epithel, UA <1 /HPF [facility] Specimen Source [facility] Specimen Urine Performing Organization Address City/State/Zipcode Phone Number [facility] [address] [place] [address] CENTER Hepatic function panel (10/04/2018 11:30 PM CDT) Protein, Total 6.8 6.0 - 8.3 gm/dL [facility] Albumin 3.3 (L) 3.5 - 5.0 g/dL [facility] Total Bilirubin 0.4 0.2 - 1.2 mg/dL [facility] Bilirubin, Direct 0.2 0.1 - 0.5 mg/dL [facility] Alkaline Phosphatase 95 40 - 150 U/L [facility] AST 15 5 - 34 U/L [facility] ALT 13 6 - 55 U/L [facility] Specimen Blood Performing Organization Address City/State/Zipcode Phone Number [facility] [address] [place] [address] CENTER after 12/02/2017 Insurance Payer Benefit Plan / Group Subscriber ID Type Phone Address PENDING MEDICAID-OTHER EES PENDING MEDICAID xxxxx Advance Directives For more information, please contact:[place] [id number] [place], [place] [phone] Code Status Date Activated Date Inactivated Comments Full Code 10/04/2018 10:32 PM 10/13/2018 11:01 PM This code status was determined by: Patient
--- OUTSIDE RECORDS SUMMARY | 2018-12-03 14:12 | XMS REPORT ---
:1985 [facility] Address [address] [place] [address] [address] [place] [address] Care Team Providers Name Role Phone DAHLIA MARSHALL Unavailable Unavailable Problems This patient has no known problems. Allergies, Adverse Reactions, Alerts This patient has no known allergies or adverse reactions. Medications This patient has no known medications. Results Test Description Test Time Test Comments Text Results Atomic Results Result Comments BLOOD CULTURE 2018-10-17 02:01:00 Test Item Value Reference Range Comments CULTURE (BEAKER) (test frce=6636) No growth in 5 days BLOOD [id number] 02:01:00 Test Item Value Reference Range Comments CULTURE (BEAKER) (test hnmy=9030) No growth in 5 days CBC W/PLT COUNT & AUTO [id number] 09:14:00 Test Item Value Reference Range Comments WHITE BLOOD CELL COUNT (BEAKER) (test kefs=589) 4.1 K/ L 3.5-10.5 RED BLOOD CELL COUNT (BEAKER) (test jxge=984) 4.24 M/ L 4.63-6.08 HEMOGLOBIN (BEAKER) (test igjw=459) 12.1 GM/DL 13.7-17.5 HEMATOCRIT (BEAKER) (test efgq=956) 36.6 % 40.1-51.0 MEAN CORPUSCULAR VOLUME (BEAKER) (test vsam=807) 86.3 fL 79.0-92.2 MEAN CORPUSCULAR HEMOGLOBIN (BEAKER) (test 28.5 pg 25.7-32.2 yqvb=192) MEAN CORPUSCULAR HEMOGLOBIN CONC (BEAKER) (test 33.1 GM/DL 32.3-36.5 csqo=131) RED CELL DISTRIBUTION WIDTH (BEAKER) (test 14.1 % 11.6-14.4 vtjo=313) PLATELET COUNT (BEAKER) (test gldd=584) 202 K/CU MM 150-450 MEAN PLATELET VOLUME (BEAKER) (test bjua=161) 9.9 fL 9.4-12.4 NUCLEATED RED BLOOD CELLS (BEAKER) (test 0 /100 WBC 0-0 bujd=200) (CELLAVISION MANUAL DIFF)2018 09:14:00 Test Item Value Reference Range Comments NEUTROPHILS - REL (CELLAVISION)(BEAKER) (test 35 % bhkr=2467) LYMPHOCYTES - REL (CELLAVISION)(BEAKER) (test 31 % ceos=1169) MONOCYTES - REL (CELLAVISION)(BEAKER) (test 20 % uvcc=0931) EOSINOPHILS - REL (CELLAVISION)(BEAKER) (test 10 % tadj=7780) BASOPHILS - REL (CELLAVISION)(BEAKER) (test 1 % dqvc=7921) ATYPICAL LYMPHOCYTES - REL (CELLAVISION)(BEAKER) 3 % 0-0 (test gkjt=4676) NEUTROPHILS - ABS (CELLAVISION)(BEAKER) (test 1.44 K/ul 1.78-5.38 xxsn=5997) LYMPHOCYTES - ABS (CELLAVISION)(BEAKER) (test 1.27 K/ul 1.32-3.57 rttw=6235) MONOCYTES - ABS (CELLAVISION)(BEAKER) (test 0.82 K/uL 0.30-0.82 ohtz=2118) EOSINOPHILS - ABS (CELLAVISION)(BEAKER) (test 0.41 K/uL 0.04-0.54 rgjh=8629) BASOPHILS - ABS (CELLAVISION)(BEAKER) (test 0.04 K/uL 0.01-0.08 hhro=7508) ATYPICAL LYMPHOCYTES - ABS (CELLAVISION)(BEAKER) 0.12 K/uL 0.00-0.00 (test lnjo=8684) TOTAL COUNTED (BEAKER) (test xjur=1203) 100 SMUDGE CELLS (BEAKER) (test fpmt=8974) Present GIANT PLATELETS (BEAKER) (test wlgn=022) Present POLYCHROMATOPHILLIC RBCS(BEAKER) (test csra=655) 1+ few ANISOCYTOSIS (BEAKER) (test ewqa=883) 1+ few MICROCYTES (BEAKER) (test zdcm=658) 1+ few PLATELET CONCENTRATION (CELLAVISION)(BEAKER) (test Adequate okzc=4247) Received comment: User comments: Slide comments:[id number] 06:38:00 Test Item Value Reference Range Comments MAGNESIUM (BEAKER) (test wxyl=031) 1.6 mg/dL 1.6-2.6 BASIC METABOLIC [id number] 06:38:00 Test Item Value Reference Range Comments SODIUM (BEAKER) (test 135 meq/L 136-145 mnyg=319) POTASSIUM (BEAKER) (test 4.6 meq/L 3.5-5.1 iytk=773) CHLORIDE (BEAKER) (test 102 meq/L 98-107 injr=817) CO2 (BEAKER) (test 26 meq/L 22-29 lkie=336) BLOOD UREA NITROGEN 6 mg/dL 7-21 (BEAKER) (test mqcl=745) CREATININE (BEAKER) (test 0.83 mg/dL 0.57-1.25 rufh=685) GLUCOSE RANDOM (BEAKER) 93 mg/dL 70-105 (test tqlo=339) CALCIUM (BEAKER) (test 8.9 mg/dL 8.4-10.2 fidw=715) EGFR (BEAKER) (test 107 mL/min/1.73 sq m ESTIMATED GFR IS NOT aaux=0393) ACCURATE CREATININE CLEARANCE IN PREDICTING GLOMERULAR FILTRATION RATE. ESTIMATED GFR IS NOT APPLICABLE FOR DIALYSIS PATIENTS. CALCIUM, [id number] 05:08:00 Test Item Value Reference Range Comments CALCIUM IONIZED (BEAKER) (test ztul=297) 1.11 mmol/L 1.12-1.27 PH, BLOOD (BEAKER) (test ebdu=9285) 7.41 VANCOMYCIN LEVEL, [id number] 13:34:00 Test Item Value Reference Range Comments VANCOMYCIN TROUGH (BEAKER) (test fytj=731) 18.9 ug/mL 10.0-20.0 CBC W/PLT COUNT & AUTO [id number] 11:09:00 Test Item Value Reference Range Comments WHITE BLOOD CELL COUNT (BEAKER) (test yrug=025) 3.5 K/ L 3.5-10.5 RED BLOOD CELL COUNT (BEAKER) (test gbon=859) 4.37 M/ L 4.63-6.08 HEMOGLOBIN (BEAKER) (test gkbs=117) 12.4 GM/DL 13.7-17.5 HEMATOCRIT (BEAKER) (test mxje=173) 38.4 % 40.1-51.0 MEAN CORPUSCULAR VOLUME (BEAKER) (test zuub=909) 87.9 fL 79.0-92.2 MEAN CORPUSCULAR HEMOGLOBIN (BEAKER) (test 28.4 pg 25.7-32.2 zzrn=504) MEAN CORPUSCULAR HEMOGLOBIN CONC (BEAKER) (test 32.3 GM/DL 32.3-36.5 tzlc=606) RED CELL DISTRIBUTION WIDTH (BEAKER) (test 13.8 % 11.6-14.4 wrxp=045) PLATELET COUNT (BEAKER) (test ufqj=865) 160 K/CU MM 150-450 MEAN PLATELET VOLUME (BEAKER) (test exha=519) 10.0 fL 9.4-12.4 NUCLEATED RED BLOOD CELLS (BEAKER) (test 0 /100 WBC 0-0 hqgz=433) (CELLAVISION MANUAL DIFF)2018-10-10 11:09:00 Test Item Value Reference Range Comments NEUTROPHILS - REL (CELLAVISION)(BEAKER) (test 50 % xkgw=7686) LYMPHOCYTES - REL (CELLAVISION)(BEAKER) (test 27 % mgxt=6672) MONOCYTES - REL (CELLAVISION)(BEAKER) (test 15 % rxlr=7424) EOSINOPHILS - REL (CELLAVISION)(BEAKER) (test 7 % etpq=9157) ATYPICAL LYMPHOCYTES - REL (CELLAVISION)(BEAKER) 1 % 0-0 (test uehy=2863) NEUTROPHILS - ABS (CELLAVISION)(BEAKER) (test 1.75 K/ul 1.78-5.38 bctu=9993) LYMPHOCYTES - ABS (CELLAVISION)(BEAKER) (test 0.95 K/ul 1.32-3.57 cupp=5776) MONOCYTES - ABS (CELLAVISION)(BEAKER) (test 0.53 K/uL 0.30-0.82 ydmy=1223) EOSINOPHILS - ABS (CELLAVISION)(BEAKER) (test 0.25 K/uL 0.04-0.54 zszv=7781) ATYPICAL LYMPHOCYTES - ABS (CELLAVISION)(BEAKER) 0.04 K/uL 0.00-0.00 (test tdpk=3904) TOTAL COUNTED (BEAKER) (test jlas=1658) 100 RBC MORPHOLOGY (BEAKER) (test flqo=234) Normal WBC MORPHOLOGY (BEAKER) (test nuwk=312) Normal PLT MORPHOLOGY (BEAKER) (test qxbf=464) Normal ARTIFACT (CELLAVISION)(BEAKER) (test rxsh=9296) Present PLATELET CONCENTRATION (CELLAVISION)(BEAKER) (test Adequate bzrj=4503) Received comment: User comments: Slide comments:URINE [id number] 09:48:00 Test Item Value Reference Range Comments CULTURE (BEAKER) (test See comment fyva=3482) CULTURE (BEAKER) (test PSEUDOMONAS >100,000 col/mL kqyn=5498) AERUGINOSA Pseudomonas aeruginosaThis is an appended report. These organism results have been appended to a previously final verified report. Amikacin (test code=1) Aztreonam (test code=32) Cefepime (test code=51) Ceftazidime (test code=27) Ciprofloxacin (test code=7) Doripenem (test keoz=040) Gentamicin (test code=18) Imipenem (test code=19) Levofloxacin (test code=22) Meropenem (test code=34) Piperacillin (test code=24) Piperacillin + Tazobactam (test code=29) Tobramycin (test code=25) CULTURE (BEAKER) (test MORGANELLA MORGANII >100,000 col/mL aiwh=5556) Morganella morganiiof a second typeThis is an appended report. These organism results have been appended to a previously final verified report. Amikacin (test code=1) Ampicillin + Sulbactam (test code=6) Aztreonam (test code=32) Cefepime (test code=51) Cefoxitin (test code=68) Ceftazidime (test code=27) Ceftriaxone (test code=52) Ertapenem (test code=38) Gentamicin (test code=18) Levofloxacin (test code=22) Meropenem (test code=34) Nitrofurantoin (test code=23) Piperacillin + Tazobactam (test code=29) Tetracycline (test code=2) Tobramycin (test code=25) Trimethoprim + Sulfamethoxazole (test code=47) CULTURE (BEAKER) (test PSEUDOMONAS >100,000 col/mL yiwq=3150) AERUGINOSA Pseudomonas aeruginosaof a second type Amikacin (test code=1) Aztreonam (test code=32) Cefepime (test code=51) Ceftazidime (test code=27) Ciprofloxacin (test code=7) Doripenem (test cosx=749) Gentamicin (test code=18) Imipenem (test code=19) Levofloxacin (test code=22) Meropenem (test code=34) Piperacillin (test code=24) Piperacillin + Tazobactam (test code=29) Tobramycin (test code=25) >100,000 col/mL enteric organisms of >2 types including Pseudomonas species. No further workupperformed. Multiple organisms suggestive of colonization or contamination. Repeat collection recommended.BLOOD [id number] 08:01:00 Test Item Value Reference Range Comments CULTURE (BEAKER) (test fszu=6489) No growth in 5 days BLOOD [id number] 08:01:00 Test Item Value Reference Range Comments CULTURE (BEAKER) (test ekpy=3752) No growth in 5 days VANCOMYCIN LEVEL, [id number] 07:05:00 Test Item Value Reference Range Comments VANCOMYCIN TROUGH (BEAKER) (test asyu=427) 36.8 ug/mL 10.0-20.0 If vancomycin trough level > 20 mcg/mL, hold next vancomycin dose, and contact MD and pharmacist.[id number] 06:50:00 Test Item Value Reference Range Comments MAGNESIUM (BEAKER) (test wwfc=735) 1.7 mg/dL 1.6-2.6 BASIC METABOLIC [id number] 06:50:00 Test Item Value Reference Range Comments SODIUM (BEAKER) (test 134 meq/L 136-145 augt=933) POTASSIUM (BEAKER) (test 4.0 meq/L 3.5-5.1 agfi=696) CHLORIDE (BEAKER) (test 103 meq/L 98-107 cptb=953) CO2 (BEAKER) (test 26 meq/L 22-29 eclo=504) BLOOD UREA NITROGEN 6 mg/dL 7-21 (BEAKER) (test hgoe=819) CREATININE (BEAKER) (test 0.80 mg/dL 0.57-1.25 tmoa=653) GLUCOSE RANDOM (BEAKER) 109 mg/dL 70-105 (test ytlh=258) CALCIUM (BEAKER) (test 8.8 mg/dL 8.4-10.2 uebj=510) EGFR (BEAKER) (test 113 mL/min/1.73 sq m ESTIMATED GFR IS NOT ufba=0033) ACCURATE CREATININE CLEARANCE IN PREDICTING GLOMERULAR FILTRATION RATE. ESTIMATED GFR IS NOT APPLICABLE FOR DIALYSIS PATIENTS. CALCIUM, [id number] 05:57:00 Test Item Value Reference Range Comments CALCIUM IONIZED (BEAKER) (test xgjv=446) 1.07 mmol/L 1.12-1.27 PH, BLOOD (BEAKER) (test usde=6657) 7.38 CBC W/PLT COUNT & AUTO [id number] 08:51:00 Test Item Value Reference Range Comments WHITE BLOOD CELL COUNT (BEAKER) (test kijp=243) 4.1 K/ L 3.5-10.5 RED BLOOD CELL COUNT (BEAKER) (test qkco=325) 4.06 M/ L 4.63-6.08 HEMOGLOBIN (BEAKER) (test snmd=990) 11.8 GM/DL 13.7-17.5 HEMATOCRIT (BEAKER) (test lhtq=631) 35.5 % 40.1-51.0 MEAN CORPUSCULAR VOLUME (BEAKER) (test shjt=268) 87.4 fL 79.0-92.2 MEAN CORPUSCULAR HEMOGLOBIN (BEAKER) (test 29.1 pg 25.7-32.2 euik=983) MEAN CORPUSCULAR HEMOGLOBIN CONC (BEAKER) (test 33.2 GM/DL 32.3-36.5 dxwb=471) RED CELL DISTRIBUTION WIDTH (BEAKER) (test 13.9 % 11.6-14.4 ppof=475) PLATELET COUNT (BEAKER) (test vjoi=407) 146 K/CU MM 150-450 MEAN PLATELET VOLUME (BEAKER) (test urot=803) 9.6 fL 9.4-12.4 NUCLEATED RED BLOOD CELLS (BEAKER) (test 0 /100 WBC 0-0 izfx=947) (CELLAVISION MANUAL DIFF)2018-10-09 08:51:00 Test Item Value Reference Range Comments NEUTROPHILS - REL (CELLAVISION)(BEAKER) (test 53 % dfvk=1080) LYMPHOCYTES - REL (CELLAVISION)(BEAKER) (test 29 % kyzb=0677) MONOCYTES - REL (CELLAVISION)(BEAKER) (test 8 % qrtr=7593) EOSINOPHILS - REL (CELLAVISION)(BEAKER) (test 4 % jndo=9483) BANDS - REL (CELLAVISION)(BEAKER) (test cacw=0825) 1 % 0-10 ATYPICAL LYMPHOCYTES - REL (CELLAVISION)(BEAKER) 5 % 0-0 (test pzgn=2558) NEUTROPHILS - ABS (CELLAVISION)(BEAKER) (test 2.17 K/ul 1.78-5.38 mxuh=5356) LYMPHOCYTES - ABS (CELLAVISION)(BEAKER) (test 1.19 K/ul 1.32-3.57 xget=6585) MONOCYTES - ABS (CELLAVISION)(BEAKER) (test 0.33 K/uL 0.30-0.82 bhqh=4483) EOSINOPHILS - ABS (CELLAVISION)(BEAKER) (test 0.16 K/uL 0.04-0.54 bowu=9719) BANDS - ABS (CELLAVISION)(BEAKER) (test avyx=7711) 0.04 K/uL 0.00-0.80 ATYPICAL LYMPHOCYTES - ABS (CELLAVISION)(BEAKER) 0.21 K/uL 0.00-0.00 (test nxgt=9227) TOTAL COUNTED (BEAKER) (test kgam=1190) 100 RBC MORPHOLOGY (BEAKER) (test srtv=031) Normal WBC MORPHOLOGY (BEAKER) (test fwyf=169) Normal PLT MORPHOLOGY (BEAKER) (test lrzt=008) Normal ARTIFACT (CELLAVISION)(BEAKER) (test mbbl=1840) Present PLATELET CONCENTRATION (CELLAVISION)(BEAKER) (test Decreased kjdp=7389) Received comment: User comments: Slide comments:[id number] 05:47:00 Test Item Value Reference Range Comments MAGNESIUM (BEAKER) (test 1.8 mg/dL 1.6-2.6 Specimen slightly hemolyzed wgis=090) [id number] 05:47:00 Test Item Value Reference Range Comments PHOSPHORUS (BEAKER) (test 2.2 mg/dL 2.3-4.7 Specimen slightly hemolyzed amne=048) BASIC METABOLIC [id number] 05:47:00 Test Item Value Reference Range Comments SODIUM (BEAKER) (test 133 meq/L 136-145 zpsg=170) POTASSIUM (BEAKER) (test 4.3 meq/L 3.5-5.1 Specimen slightly wdjy=428) hemolyzed CHLORIDE (BEAKER) (test 101 meq/L 98-107 jddk=400) CO2 (BEAKER) (test 25 meq/L 22-29 fhep=041) BLOOD UREA NITROGEN 9 mg/dL 7-21 (BEAKER) (test kzgx=400) CREATININE (BEAKER) (test 0.89 mg/dL 0.57-1.25 Specimen slightly hrpf=341) hemolyzed GLUCOSE RANDOM (BEAKER) 93 mg/dL 70-105 (test xwvl=225) CALCIUM (BEAKER) (test 8.5 mg/dL 8.4-10.2 iwha=902) EGFR (BEAKER) (test 100 mL/min/1.73 sq m ESTIMATED GFR IS NOT dfoa=5038) ACCURATE CREATININE CLEARANCE IN PREDICTING GLOMERULAR FILTRATION RATE. ESTIMATED GFR IS NOT APPLICABLE FOR DIALYSIS PATIENTS. CALCIUM, [id number] 05:18:00 Test Item Value Reference Range Comments CALCIUM IONIZED (BEAKER) (test khrv=721) 1.07 mmol/L 1.12-1.27 PH, BLOOD (BEAKER) (test umlk=0180) 7.39 [id number] 18:30:00 Test Item Value Reference Range Comments PHOSPHORUS (BEAKER) (test gccc=113) 2.0 mg/dL 2.3-4.7 [id number] 18:30:00 Test Item Value Reference Range Comments MAGNESIUM (BEAKER) (test kkao=350) 1.7 mg/dL 1.6-2.6 BASIC METABOLIC [id number] 18:30:00 Test Item Value Reference Range Comments SODIUM (BEAKER) (test 134 meq/L 136-145 iweh=449) POTASSIUM (BEAKER) (test 4.6 meq/L 3.5-5.1 hacx=817) CHLORIDE (BEAKER) (test 100 meq/L 98-107 ejqf=076) CO2 (BEAKER) (test 27 meq/L 22-29 jpbk=330) BLOOD UREA NITROGEN 8 mg/dL 7-21 (BEAKER) (test eedc=716) CREATININE (BEAKER) (test 0.92 mg/dL 0.57-1.25 upqi=049) GLUCOSE RANDOM (BEAKER) 111 mg/dL 70-105 (test ptqp=687) CALCIUM (BEAKER) (test 8.6 mg/dL 8.4-10.2 kkus=990) EGFR (BEAKER) (test 96 mL/min/1.73 sq m ESTIMATED GFR IS NOT udrj=0342) ACCURATE CREATININE CLEARANCE IN PREDICTING GLOMERULAR FILTRATION RATE. ESTIMATED GFR IS NOT APPLICABLE FOR DIALYSIS PATIENTS. VANCOMYCIN LEVEL, [id number] 12:18:00 Test Item Value Reference Range Comments VANCOMYCIN TROUGH (BEAKER) (test igay=429) 13.4 ug/mL 10.0-20.0 If vancomycin trough level > 20 mcg/mL, hold next vancomycin dose, and contact MD and pharmacist.[id number] 12:15:00 Test Item Value Reference Range Comments PHOSPHORUS (BEAKER) (test vitp=682) 2.4 mg/dL 2.3-4.7 [id number] 12:15:00 Test Item Value Reference Range Comments MAGNESIUM (BEAKER) (test vfnk=167) 2.1 mg/dL 1.6-2.6 RAD, ABDOMEN/KUB, 1 VIEW [id number] 10:27:00Reason for exam:->nausea, vomitingFINAL REPORT RAD, ABDOMEN/KUB 1 VIEW AP CLINICAL INDICATION: nausea, vomiting COMPARISON: Correlation to CT examination October 04, 2018 obtained by [facility] TECHNIQUE: Single, frontal radiograph of the abdomen. IMPRESSION:The bowel gas pattern is nonspecific, but nonobstructive. A moderate stool burden is present. No abnormal mass or ascites is detected. Large stones arepresent bilaterally and collecting systems, incompletely viewed. Bilateral percutaneous nephrostomy tubes are present, and have been placed in the interval since the prior CT. The regional skeleton is intact. Signed: JR Syed, Mildred LAMeport Verified Date/Time: 2018 10:27:29 Reading Location: [facility] C013V Neuro Reading Room [id number] 05:21:00 Test Item Value Reference Range Comments MAGNESIUM (BEAKER) (test 1.9 mg/dL 1.6-2.6 Specimen moderately hemolyzed dmbm=938) [id number] 05:21:00 Test Item Value Reference Range Comments PHOSPHORUS (BEAKER) (test 3.5 mg/dL 2.3-4.7 Specimen moderately hemolyzed iwwd=297) BASIC METABOLIC [id number] 05:21:00 Test Item Value Reference Range Comments SODIUM (BEAKER) (test 134 meq/L 136-145 xaxo=651) POTASSIUM (BEAKER) (test 4.4 meq/L 3.5-5.1 Specimen moderately uaxp=800) hemolyzed CHLORIDE (BEAKER) (test 102 meq/L 98-107 nyis=486) CO2 (BEAKER) (test 23 meq/L 22-29 hjje=292) BLOOD UREA NITROGEN 9 mg/dL 7-21 (BEAKER) (test jmlz=459) CREATININE (BEAKER) (test 0.81 mg/dL 0.57-1.25 Specimen moderately pdey=121) hemolyzed GLUCOSE RANDOM (BEAKER) 85 mg/dL 70-105 (test tdkg=928) CALCIUM (BEAKER) (test 8.3 mg/dL 8.4-10.2 aqfl=257) EGFR (BEAKER) (test 111 mL/min/1.73 sq m ESTIMATED GFR IS NOT fnjp=6033) ACCURATE CREATININE CLEARANCE IN PREDICTING GLOMERULAR FILTRATION RATE. ESTIMATED GFR IS NOT APPLICABLE FOR DIALYSIS PATIENTS. CBC (HEMOGRAM ONLY)2018-10-08 04:51:00 Test Item Value Reference Range Comments WHITE BLOOD CELL COUNT (BEAKER) (test tujv=354) 4.8 K/ L 3.5-10.5 RED BLOOD CELL COUNT (BEAKER) (test srty=411) 4.25 M/ L 4.63-6.08 HEMOGLOBIN (BEAKER) (test ruei=982) 12.2 GM/DL 13.7-17.5 HEMATOCRIT (BEAKER) (test okkm=651) 36.8 % 40.1-51.0 MEAN CORPUSCULAR VOLUME (BEAKER) (test xtdp=084) 86.6 fL 79.0-92.2 MEAN CORPUSCULAR HEMOGLOBIN (BEAKER) (test 28.7 pg 25.7-32.2 gfvu=804) MEAN CORPUSCULAR HEMOGLOBIN CONC (BEAKER) (test 33.2 GM/DL 32.3-36.5 cztb=674) RED CELL DISTRIBUTION WIDTH (BEAKER) (test 13.9 % 11.6-14.4 qemm=241) PLATELET COUNT (BEAKER) (test zyja=666) 157 K/CU MM 150-450 MEAN PLATELET VOLUME (BEAKER) (test kvkd=698) 9.9 fL 9.4-12.4 NUCLEATED RED BLOOD CELLS (BEAKER) (test 0 /100 WBC 0-0 gydc=908) POCT-GLUCOSE [id number] 00:14:00 Test Item Value Reference Range Comments POC-GLUCOSE METER (BEAKER) 81 mg/dL 70-110 TESTED AT [facility] [address] [facility] (test qrtl=9954) [facility] [address] [id number] 23:19:00 Test Item Value Reference Range Comments MAGNESIUM (BEAKER) (test 2.3 mg/dL 1.6-2.6 Specimen slightly hemolyzed hhpv=332) [id number] 23:19:00 Test Item Value Reference Range Comments PHOSPHORUS (BEAKER) (test 3.6 mg/dL 2.3-4.7 Specimen slightly hemolyzed wssw=307) BASIC METABOLIC [id number] 23:19:00 Test Item Value Reference Range Comments SODIUM (BEAKER) (test 134 meq/L 136-145 cnos=833) POTASSIUM (BEAKER) (test 4.5 meq/L 3.5-5.1 Specimen slightly izuz=220) hemolyzed CHLORIDE (BEAKER) (test 101 meq/L 98-107 imhe=159) CO2 (BEAKER) (test 24 meq/L 22-29 odvt=476) BLOOD UREA NITROGEN 9 mg/dL 7-21 (BEAKER) (test tziv=674) CREATININE (BEAKER) (test 0.84 mg/dL 0.57-1.25 Specimen slightly ynri=386) hemolyzed GLUCOSE RANDOM (BEAKER) 91 mg/dL 70-105 (test zxon=256) CALCIUM (BEAKER) (test 8.1 mg/dL 8.4-10.2 yqwj=343) EGFR (BEAKER) (test 107 mL/min/1.73 sq m ESTIMATED GFR IS NOT gcvp=2490) ACCURATE CREATININE CLEARANCE IN PREDICTING GLOMERULAR FILTRATION RATE. ESTIMATED GFR IS NOT APPLICABLE FOR DIALYSIS PATIENTS. [id number] 13:10:00 Test Item Value Reference Range Comments PHOSPHORUS (BEAKER) (test jrld=784) 2.2 mg/dL 2.3-4.7 [id number] 13:10:00 Test Item Value Reference Range Comments MAGNESIUM (BEAKER) (test qqsr=072) 1.7 mg/dL 1.6-2.6 BASIC METABOLIC [id number] 13:10:00 Test Item Value Reference Range Comments SODIUM (BEAKER) (test 133 meq/L 136-145 ycgq=344) POTASSIUM (BEAKER) (test 4.1 meq/L 3.5-5.1 pnlh=993) CHLORIDE (BEAKER) (test 103 meq/L 98-107 kyhg=229) CO2 (BEAKER) (test 25 meq/L 22-29 dpru=472) BLOOD UREA NITROGEN 7 mg/dL 7-21 (BEAKER) (test dsvz=346) CREATININE (BEAKER) (test 0.71 mg/dL 0.57-1.25 qyal=417) GLUCOSE RANDOM (BEAKER) 89 mg/dL 70-105 (test tqft=977) CALCIUM (BEAKER) (test 8.0 mg/dL 8.4-10.2 rovz=664) EGFR (BEAKER) (test 129 mL/min/1.73 sq m ESTIMATED GFR IS NOT wyzw=7078) ACCURATE CREATININE CLEARANCE IN PREDICTING GLOMERULAR FILTRATION RATE. ESTIMATED GFR IS NOT APPLICABLE FOR DIALYSIS PATIENTS. [id number] 09:07:00 Test Item Value Reference Range Comments MAGNESIUM (BEAKER) (test 2.3 mg/dL 1.6-2.6 Specimen slightly hemolyzed qtxv=638) [id number] 09:07:00 Test Item Value Reference Range Comments PHOSPHORUS (BEAKER) (test 2.3 mg/dL 2.3-4.7 Specimen slightly hemolyzed ycne=772) BASIC METABOLIC [id number] 09:07:00 Test Item Value Reference Range Comments SODIUM (BEAKER) (test 134 meq/L 136-145 efqy=803) POTASSIUM (BEAKER) (test 5.0 meq/L 3.5-5.1 Specimen slightly weqx=016) hemolyzed CHLORIDE (BEAKER) (test 102 meq/L 98-107 qoyr=418) CO2 (BEAKER) (test 27 meq/L 22-29 koxs=293) BLOOD UREA NITROGEN 9 mg/dL 7-21 (BEAKER) (test ceml=265) CREATININE (BEAKER) (test 0.87 mg/dL 0.57-1.25 Specimen slightly xtoa=727) hemolyzed GLUCOSE RANDOM (BEAKER) 97 mg/dL 70-105 (test bsbl=311) CALCIUM (BEAKER) (test 8.3 mg/dL 8.4-10.2 arjw=611) EGFR (BEAKER) (test 102 mL/min/1.73 sq m ESTIMATED GFR IS NOT lzqs=3626) ACCURATE CREATININE CLEARANCE IN PREDICTING GLOMERULAR FILTRATION RATE. ESTIMATED GFR IS NOT APPLICABLE FOR DIALYSIS PATIENTS. CBC (HEMOGRAM ONLY)2018-10-07 05:28:00 Test Item Value Reference Range Comments WHITE BLOOD CELL COUNT (BEAKER) (test rqfn=355) 6.8 K/ L 3.5-10.5 RED BLOOD CELL COUNT (BEAKER) (test qies=678) 4.06 M/ L 4.63-6.08 HEMOGLOBIN (BEAKER) (test hywp=951) 11.7 GM/DL 13.7-17.5 HEMATOCRIT (BEAKER) (test koco=384) 36.1 % 40.1-51.0 MEAN CORPUSCULAR VOLUME (BEAKER) (test xmyg=237) 88.9 fL 79.0-92.2 MEAN CORPUSCULAR HEMOGLOBIN (BEAKER) (test 28.8 pg 25.7-32.2 tqhz=226) MEAN CORPUSCULAR HEMOGLOBIN CONC (BEAKER) (test 32.4 GM/DL 32.3-36.5 qyzj=231) RED CELL DISTRIBUTION WIDTH (BEAKER) (test 14.2 % 11.6-14.4 rhek=840) PLATELET COUNT (BEAKER) (test pajc=414) 155 K/CU MM 150-450 MEAN PLATELET VOLUME (BEAKER) (test ifgi=247) 9.5 fL 9.4-12.4 NUCLEATED RED BLOOD CELLS (BEAKER) (test 0 /100 WBC 0-0 aptr=072) [id number] 02:17:00 Test Item Value Reference Range Comments PHOSPHORUS (BEAKER) (test bswp=852) 2.2 mg/dL 2.3-4.7 [id number] 02:17:00 Test Item Value Reference Range Comments MAGNESIUM (BEAKER) (test sbdf=763) 1.9 mg/dL 1.6-2.6 BASIC METABOLIC [id number] 02:17:00 Test Item Value Reference Range Comments SODIUM (BEAKER) (test 136 meq/L 136-145 mpqt=943) POTASSIUM (BEAKER) (test 4.6 meq/L 3.5-5.1 cvwk=879) CHLORIDE (BEAKER) (test 105 meq/L 98-107 srvm=103) CO2 (BEAKER) (test 24 meq/L 22-29 nskm=621) BLOOD UREA NITROGEN 8 mg/dL 7-21 (BEAKER) (test snuh=036) CREATININE (BEAKER) (test 0.82 mg/dL 0.57-1.25 asrr=284) GLUCOSE RANDOM (BEAKER) 103 mg/dL 70-105 (test zhex=432) CALCIUM (BEAKER) (test 8.6 mg/dL 8.4-10.2 hnkx=700) EGFR (BEAKER) (test 110 mL/min/1.73 sq m ESTIMATED GFR IS NOT qitt=8582) ACCURATE CREATININE CLEARANCE IN PREDICTING GLOMERULAR FILTRATION RATE. ESTIMATED GFR IS NOT APPLICABLE FOR DIALYSIS PATIENTS. [id number] 19:01:00 Test Item Value Reference Range Comments PHOSPHORUS (BEAKER) (test qxqf=045) 1.8 mg/dL 2.3-4.7 [id number] 19:01:00 Test Item Value Reference Range Comments MAGNESIUM (BEAKER) (test tdmr=960) 1.9 mg/dL 1.6-2.6 BASIC METABOLIC [id number] 19:01:00 Test Item Value Reference Range Comments SODIUM (BEAKER) (test 135 meq/L 136-145 mzhp=731) POTASSIUM (BEAKER) (test 4.5 meq/L 3.5-5.1 woma=964) CHLORIDE (BEAKER) (test 104 meq/L 98-107 vlzq=412) CO2 (BEAKER) (test 24 meq/L 22-29 skjj=260) BLOOD UREA NITROGEN 8 mg/dL 7-21 (BEAKER) (test rovc=664) CREATININE (BEAKER) (test 0.82 mg/dL 0.57-1.25 olvl=589) GLUCOSE RANDOM (BEAKER) 96 mg/dL 70-105 (test sdfu=959) CALCIUM (BEAKER) (test 8.2 mg/dL 8.4-10.2 myli=933) EGFR (BEAKER) (test 110 mL/min/1.73 sq m ESTIMATED GFR IS NOT tstd=6479) ACCURATE CREATININE CLEARANCE IN PREDICTING GLOMERULAR FILTRATION RATE. ESTIMATED GFR IS NOT APPLICABLE FOR DIALYSIS PATIENTS. ANG, NEPHROSTOMY, PERC, EXTERNAL [id number] 17:10:00Reason for exam:-> Bilateral PCNs for urosepsis in paraplegicFINAL REPORT Fluoroscopic guided bilateral nephrostomy tube placement. Clinical History: Bilateral obstructive nephrolithiasis and left-sided XGP. Modality: Sonography and fluoroscopy Floors Buffer: Yovanny Buckner MD. Roughener: MD Ranjit (Fellow). Sedation: Moderate sedation was administered. 0.5 mg of Versed and 25 mcg of fentanyl IV was used for moderate sedation monitored under my direction. Total intra-service time of sedation was 45 minutes. The patient's vital signs were monitored throughout the procedure and recorded in the patient' s medical record by the nurse. Estimated Blood Loss: Less than 5 cc. Specimen: None. Fluoroscopy Time: 9.1 min.Reference Air Kerma (Ka, r): 23.5 mGy. Technique : Informed written consent was obtained. Discussion of risks, benefits, and alternatives were made with the patient. The patient expressed understanding and agreed to proceed. A universal timeout was performed prior to starting the procedure. All elements maximal sterile barrier technique was utilized for this procedure, including utilization of sterile scrubsolution for skin prep, a large sterile sheet [...] soft tissue tract was dilated. A 8.5 Syriac drainage catheter was placed into the left renal pelvis, noting that a proper pigtail could not be performed secondary to presence of a staghorn calculus. Contrast injection confirmed position. The catheterwas then secured onto the skin with silk suture. Initial ultrasound images demonstrate mild right-sided hydronephrosis. A right mid pole calyx was targeted with ultrasound. Using ultrasound guidance, following acquisition of permanent images, a 21-gauge Chiba needle was advanced into a right mid polecalyx. Return of urine and contrast injection confirmed intraluminal position. A 0.018 wire was advanced into the right renal pelvis. An AccuStick sheath was advanced over wire and gentle nephrostogramwas performed. Next a 0.035 Amplatz wire was advanced down the right ureter. The soft tissue tract was dilated. A 8.5 Syriac drainage catheter was advanced over wire with pigtail formed within the right renal pelvis. Contrast injection confirmed position. The catheter was secured to the skin with silksuture. Sterile dressings were applied. The patient tolerated [...] catheter as detailed above. Signed: Yovanny Buckner MDReport Verified Date/Time: 10/06/2018 17:10:22 Reading Location: [address] Body Reading Room CREATININE, RANDOM [id number] 13:32:00 Test Item Value Reference Range Comments CREATININE URINE (BEAKER) (test uxwm=522) 8.6 mg/dL Reference Range: No NormalsSODIUM, RANDOM [id number] 13:32:00 Test Item Value Reference Range Comments SODIUM URINE (BEAKER) (test sapp=466) 90 meq/L Reference Range: No NormalsOSMOLALITY, [id number] 13:24:00 Test Item Value Reference Range Comments OSMOLALITY URINE (BEAKER) (test jygr=293) 223 mOsm/kg 40-1,400 [id number] 11:19:00 Test Item Value Reference Range Comments PHOSPHORUS (BEAKER) (test iixe=602) 3.9 mg/dL 2.3-4.7 [id number] 11:19:00 Test Item Value Reference Range Comments MAGNESIUM (BEAKER) (test mhvq=743) 2.4 mg/dL 1.6-2.6 BASIC METABOLIC [id number] 11:19:00 Test Item Value Reference Range Comments SODIUM (BEAKER) (test 138 meq/L 136-145 ugzr=100) POTASSIUM (BEAKER) (test 4.8 meq/L 3.5-5.1 swqu=422) CHLORIDE (BEAKER) (test 105 meq/L 98-107 xxrx=874) CO2 (BEAKER) (test 27 meq/L 22-29 tnsl=002) BLOOD UREA NITROGEN 9 mg/dL 7-21 (BEAKER) (test nidk=921) CREATININE (BEAKER) (test 0.98 mg/dL 0.57-1.25 lfju=283) GLUCOSE RANDOM (BEAKER) 87 mg/dL 70-105 (test ngzn=388) CALCIUM (BEAKER) (test 8.5 mg/dL 8.4-10.2 llfw=374) EGFR (BEAKER) (test 89 mL/min/1.73 sq m ESTIMATED GFR IS NOT ntol=7683) ACCURATE CREATININE CLEARANCE IN PREDICTING GLOMERULAR FILTRATION RATE. ESTIMATED GFR IS NOT APPLICABLE FOR DIALYSIS PATIENTS. VANCOMYCIN LEVEL, [id number] 11:17:00 Test Item Value Reference Range Comments VANCOMYCIN TROUGH (BEAKER) (test penn=081) 14.2 ug/mL 10.0-20.0 [id number] 08:42:00 Test Item Value Reference Range Comments PHOSPHORUS (BEAKER) (test yoeg=772) 3.8 mg/dL 2.3-4.7 [id number] 08:42:00 Test Item Value Reference Range Comments MAGNESIUM (BEAKER) (test kjwa=603) 1.9 mg/dL 1.6-2.6 BASIC METABOLIC [id number] 08:42:00 Test Item Value Reference Range Comments SODIUM (BEAKER) (test 140 meq/L 136-145 ceyg=151) POTASSIUM (BEAKER) (test 4.0 meq/L 3.5-5.1 hcpv=000) CHLORIDE (BEAKER) (test 109 meq/L 98-107 eile=543) CO2 (BEAKER) (test 23 meq/L 22-29 nuaf=827) BLOOD UREA NITROGEN 9 mg/dL 7-21 (BEAKER) (test oiqo=335) CREATININE (BEAKER) (test 0.93 mg/dL 0.57-1.25 guro=832) GLUCOSE RANDOM (BEAKER) 87 mg/dL 70-105 (test bmfl=766) CALCIUM (BEAKER) (test 8.0 mg/dL 8.4-10.2 ffdi=410) EGFR (BEAKER) (test 95 mL/min/1.73 sq m ESTIMATED GFR IS NOT ejvy=0494) ACCURATE CREATININE CLEARANCE IN PREDICTING GLOMERULAR FILTRATION RATE. ESTIMATED GFR IS NOT APPLICABLE FOR DIALYSIS PATIENTS. CALCIUM, [id number] 03:27:00 Test Item Value Reference Range Comments CALCIUM IONIZED (BEAKER) (test rxpc=516) 1.11 mmol/L 1.12-1.27 PH, BLOOD (BEAKER) (test fnsf=0607) 7.37 CBC (HEMOGRAM ONLY)2018-10-06 03:21:00 Test Item Value Reference Range Comments WHITE BLOOD CELL COUNT (BEAKER) (test pscs=896) 13.3 K/ L 3.5-10.5 RED BLOOD CELL COUNT (BEAKER) (test wmhm=873) 3.43 M/ L 4.63-6.08 HEMOGLOBIN (BEAKER) (test djal=144) 10.3 GM/DL 13.7-17.5 HEMATOCRIT (BEAKER) (test erxj=640) 30.6 % 40.1-51.0 MEAN CORPUSCULAR VOLUME (BEAKER) (test pxkx=765) 89.2 fL 79.0-92.2 MEAN CORPUSCULAR HEMOGLOBIN (BEAKER) (test 30.0 pg 25.7-32.2 jumm=666) MEAN CORPUSCULAR HEMOGLOBIN CONC (BEAKER) (test 33.7 GM/DL 32.3-36.5 xccr=438) RED CELL DISTRIBUTION WIDTH (BEAKER) (test 14.1 % 11.6-14.4 oghr=593) PLATELET COUNT (BEAKER) (test hpbz=773) 151 K/CU MM 150-450 MEAN PLATELET VOLUME (BEAKER) (test uidr=094) 9.1 fL 9.4-12.4 NUCLEATED RED BLOOD CELLS (BEAKER) (test 0 /100 WBC 0-0 sdqi=898) BASIC METABOLIC [id number] 00:26:00 Test Item Value Reference Range Comments SODIUM (BEAKER) (test 133 meq/L 136-145 abxj=275) POTASSIUM (BEAKER) (test 3.6 meq/L 3.5-5.1 Specimen slightly wrqn=737) hemolyzed CHLORIDE (BEAKER) (test 103 meq/L 98-107 wvhg=414) CO2 (BEAKER) (test 21 meq/L 22-29 ejjq=543) BLOOD UREA NITROGEN 11 mg/dL 7-21 (BEAKER) (test rssh=201) CREATININE (BEAKER) (test 0.93 mg/dL 0.57-1.25 Specimen slightly mswz=771) hemolyzed GLUCOSE RANDOM (BEAKER) 85 mg/dL 70-105 (test bsxe=530) CALCIUM (BEAKER) (test 7.7 mg/dL 8.4-10.2 qkle=895) EGFR (BEAKER) (test 95 mL/min/1.73 sq m ESTIMATED GFR IS NOT tkjr=3315) ACCURATE CREATININE CLEARANCE IN PREDICTING GLOMERULAR FILTRATION RATE. ESTIMATED GFR IS NOT APPLICABLE FOR DIALYSIS PATIENTS. [id number] 00:11:00 Test Item Value Reference Range Comments MAGNESIUM (BEAKER) (test 2.0 mg/dL 1.6-2.6 Specimen slightly hemolyzed yaez=542) [id number] 00:11:00 Test Item Value Reference Range Comments PHOSPHORUS (BEAKER) (test 1.9 mg/dL 2.3-4.7 Specimen slightly hemolyzed simg=950) CBC (HEMOGRAM ONLY)2018-10-05 23:32:00 Test Item Value Reference Range Comments WHITE BLOOD CELL COUNT (BEAKER) (test zvsz=174) 2.9 K/ L 3.5-10.5 RED BLOOD CELL COUNT (BEAKER) (test lbjm=952) 3.66 M/ L 4.63-6.08 HEMOGLOBIN (BEAKER) (test ubla=012) 10.7 GM/DL 13.7-17.5 HEMATOCRIT (BEAKER) (test mdyh=814) 31.9 % 40.1-51.0 MEAN CORPUSCULAR VOLUME (BEAKER) (test rfiv=561) 87.2 fL 79.0-92.2 MEAN CORPUSCULAR HEMOGLOBIN (BEAKER) (test 29.2 pg 25.7-32.2 nfpm=759) MEAN CORPUSCULAR HEMOGLOBIN CONC (BEAKER) (test 33.5 GM/DL 32.3-36.5 jifq=617) RED CELL DISTRIBUTION WIDTH (BEAKER) (test 14.1 % 11.6-14.4 pjls=794) PLATELET COUNT (BEAKER) (test zuec=252) 168 K/CU MM 150-450 MEAN PLATELET VOLUME (BEAKER) (test glbs=171) 9.2 fL 9.4-12.4 NUCLEATED RED BLOOD CELLS (BEAKER) (test 0 /100 WBC 0-0 qtwz=731) [id number] 14:29:00 Test Item Value Reference Range Comments PARTIAL THROMBOPLASTIN TIME (BEAKER) (test 40.2 seconds 22.5-36.0 cfpb=806) BASIC METABOLIC [id number] 13:22:00 Test Item Value Reference Range Comments SODIUM (BEAKER) (test 135 meq/L 136-145 gnil=189) POTASSIUM (BEAKER) (test 3.8 meq/L 3.5-5.1 vpgl=980) CHLORIDE (BEAKER) (test 106 meq/L 98-107 aenc=446) CO2 (BEAKER) (test 22 meq/L 22-29 khjx=323) BLOOD UREA NITROGEN 10 mg/dL 7-21 (BEAKER) (test mase=874) CREATININE (BEAKER) (test 0.90 mg/dL 0.57-1.25 dzuz=430) GLUCOSE RANDOM (BEAKER) 85 mg/dL 70-105 (test akls=684) CALCIUM (BEAKER) (test 7.9 mg/dL 8.4-10.2 eocf=649) EGFR (BEAKER) (test 98 mL/min/1.73 sq m ESTIMATED GFR IS NOT hvjx=0806) ACCURATE CREATININE CLEARANCE IN PREDICTING GLOMERULAR FILTRATION RATE. ESTIMATED GFR IS NOT APPLICABLE FOR DIALYSIS PATIENTS. PROTHROMBIN [id number] 13:19:00 Test Item Value Reference Range Comments PROTIME (BEAKER) (test bznw=587) 15.8 seconds 11.9-14.2 INR (BEAKER) (test xkrm=357) 1.3 <=5.9 Effective 08/15/2018: PT Reference Range ChangeNew: 11.9-14.2 Previous: 11.7- 14.7RECOMMENDED COUMADIN/WARFARIN INR THERAPY RANGESSTANDARD DOSE: 2.0-3.0 Includes: PROPHYLAXIS for venous thrombosis, systemic embolization; TREATMENT for venous thrombosis and/or pulmonary embolus.HIGH RISK: Target INR is2.5-3.5 for patients wiht mechanical heart valves.[id number] 13:13:00 Test Item Value Reference Range Comments PHOSPHORUS (BEAKER) (test fvne=745) 3.2 mg/dL 2.3-4.7 [id number] 13:13:00 Test Item Value Reference Range Comments MAGNESIUM (BEAKER) (test edem=469) 1.9 mg/dL 1.6-2.6 [id number] 04:26:00 Test Item Value Reference Range Comments PHOSPHORUS (BEAKER) (test eiau=286) 2.7 mg/dL 2.3-4.7 [id number] 04:26:00 Test Item Value Reference Range Comments MAGNESIUM (BEAKER) (test gygn=385) 2.4 mg/dL 1.6-2.6 BASIC METABOLIC [id number] 04:26:00 Test Item Value Reference Range Comments SODIUM (BEAKER) (test 140 meq/L 136-145 zyhi=509) POTASSIUM (BEAKER) (test 3.9 meq/L 3.5-5.1 ubwm=942) CHLORIDE (BEAKER) (test 111 meq/L 98-107 rtyv=723) CO2 (BEAKER) (test 23 meq/L 22-29 fqgl=636) BLOOD UREA NITROGEN 13 mg/dL 7-21 (BEAKER) (test ezuh=898) CREATININE (BEAKER) (test 1.06 mg/dL 0.57-1.25 shrl=044) GLUCOSE RANDOM (BEAKER) 104 mg/dL 70-105 (test iktn=403) CALCIUM (BEAKER) (test 8.1 mg/dL 8.4-10.2 flud=719) EGFR (BEAKER) (test 81 mL/min/1.73 sq m ESTIMATED GFR IS NOT mumk=9927) ACCURATE CREATININE CLEARANCE IN PREDICTING GLOMERULAR FILTRATION RATE. ESTIMATED GFR IS NOT APPLICABLE FOR DIALYSIS PATIENTS. LACTIC ACID, [id number] 04:08:00 Test Item Value Reference Range Comments LACTATE BLOOD VENOUS (2) (BEAKER) (test 0.9 mmol/L 0.5-2.2 xxoi=1787) CBC W/PLT COUNT & AUTO [id number] 03:54:00 Test Item Value Reference Range Comments WHITE BLOOD CELL COUNT (BEAKER) (test mblg=312) 4.8 K/ L 3.5-10.5 RED BLOOD CELL COUNT (BEAKER) (test satk=859) 3.83 M/ L 4.63-6.08 HEMOGLOBIN (BEAKER) (test mrkq=926) 11.2 GM/DL 13.7-17.5 HEMATOCRIT (BEAKER) (test wkgc=286) 33.2 % 40.1-51.0 MEAN CORPUSCULAR VOLUME (BEAKER) (test audx=558) 86.7 fL 79.0-92.2 MEAN CORPUSCULAR HEMOGLOBIN (BEAKER) (test 29.2 pg 25.7-32.2 pxpm=465) MEAN CORPUSCULAR HEMOGLOBIN CONC (BEAKER) (test 33.7 GM/DL 32.3-36.5 edrx=811) RED CELL DISTRIBUTION WIDTH (BEAKER) (test 14.0 % 11.6-14.4 ftly=551) PLATELET COUNT (BEAKER) (test xfzn=780) 239 K/CU MM 150-450 MEAN PLATELET VOLUME (BEAKER) (test gioe=955) 8.6 fL 9.4-12.4 NUCLEATED RED BLOOD CELLS (BEAKER) (test 0 /100 WBC 0-0 dvfo=738) NEUTROPHILS RELATIVE PERCENT (BEAKER) (test 68 % ughy=285) LYMPHOCYTES RELATIVE PERCENT (BEAKER) (test 13 % oxai=798) MONOCYTES RELATIVE PERCENT (BEAKER) (test 15 % cbft=184) EOSINOPHILS RELATIVE PERCENT (BEAKER) (test 3 % exzr=703) BASOPHILS RELATIVE PERCENT (BEAKER) (test 0 % tsio=350) NEUTROPHILS ABSOLUTE COUNT (BEAKER) (test 3.27 K/ L 1.78-5.38 kyiw=001) LYMPHOCYTES ABSOLUTE COUNT (BEAKER) (test 0.63 K/ L 1.32-3.57 frjm=651) MONOCYTES ABSOLUTE COUNT (BEAKER) (test 0.72 K/ L 0.30-0.82 kxnd=509) EOSINOPHILS ABSOLUTE COUNT (BEAKER) (test 0.13 K/ L 0.04-0.54 cqxp=250) BASOPHILS ABSOLUTE COUNT (BEAKER) (test 0.01 K/ L 0.01-0.08 dbdf=122) IMMATURE GRANULOCYTES-RELATIVE PERCENT (BEAKER) 1 % 0-1 (test mngx=7257) LACTIC ACID, [id number] 01:19:00 Test Item Value Reference Range Comments LACTATE BLOOD VENOUS (2) (BEAKER) (test 0.8 mmol/L 0.5-2.2 igmf=1970) URINALYSIS W/ REFLEX URINE [id number] 00:55:00 Test Item Value Reference Range Comments COLOR (BEAKER) (test ehiz=512) Yellow CLARITY (BEAKER) (test gebn=199) Hazy SPECIFIC GRAVITY UA (BEAKER) (test ckma=653) 1.011 1.001-1.035 PH UA (BEAKER) (test bhue=985) 6.5 5.0-8.0 PROTEIN UA (BEAKER) (test ghvh=795) 50 mg/dL Negative GLUCOSE UA (BEAKER) (test vplt=110) Negative Negative KETONES UA (BEAKER) (test zdql=575) Negative Negative BILIRUBIN UA (BEAKER) (test jjap=293) Negative Negative BLOOD UA (BEAKER) (test wucl=881) Moderate Negative NITRITE UA (BEAKER) (test syht=855) Negative Negative LEUKOCYTE ESTERASE UA (BEAKER) (test rirf=932) Large Negative UROBILINOGEN UA (BEAKER) (test plll=833) 4.0 mg/dL 0.2-1.0 RBC UA (BEAKER) (test wxgl=442) 53 /HPF WBC UA (BEAKER) (test ymnw=804) 228 /HPF BACTERIA (BEAKER) (test ofsk=194) Rare MUCUS (BEAKER) (test zoay=8428) Rare SQUAMOUS EPITHELIAL (BEAKER) (test wbpr=157) < /HPF SOURCE(BEAKER) (test sykv=6807) HEPATIC FUNCTION [id number] 00:21:00 Test Item Value Reference Range Comments TOTAL PROTEIN (BEAKER) (test nuhc=431) 6.8 gm/dL 6.0-8.3 ALBUMIN (BEAKER) (test twpg=2726) 3.3 g/dL 3.5-5.0 BILIRUBIN TOTAL (BEAKER) (test mard=657) 0.4 mg/dL 0.2-1.2 BILIRUBIN DIRECT (BEAKER) (test dsfc=889) 0.2 mg/dL 0.1-0.5 ALKALINE PHOSPHATASE (BEAKER) (test fkqb=906) 95 U/L 40-150 AST (SGOT) (BEAKER) (test foaa=016) 15 U/L 5-34 ALT (SGPT) (BEAKER) (test gabq=004) 13 U/L 6-55 BASIC METABOLIC [id number] 00:21:00 Test Item Value Reference Range Comments SODIUM (BEAKER) (test 142 meq/L 136-145 uxif=433) POTASSIUM (BEAKER) (test 3.8 meq/L 3.5-5.1 tdpn=613) CHLORIDE (BEAKER) (test 114 meq/L 98-107 rnyr=698) CO2 (BEAKER) (test 21 meq/L 22-29 atia=952) BLOOD UREA NITROGEN 14 mg/dL 7-21 (BEAKER) (test gowj=896) CREATININE (BEAKER) (test 1.15 mg/dL 0.57-1.25 phzr=116) GLUCOSE RANDOM (BEAKER) 99 mg/dL 70-105 (test xqdv=821) CALCIUM (BEAKER) (test 8.0 mg/dL 8.4-10.2 jqka=713) EGFR (BEAKER) (test 74 mL/min/1.73 sq m ESTIMATED GFR IS NOT shou=2426) ACCURATE CREATININE CLEARANCE IN PREDICTING GLOMERULAR FILTRATION RATE. ESTIMATED GFR IS NOT APPLICABLE FOR DIALYSIS PATIENTS. [id number] 00:21:00 Test Item Value Reference Range Comments MAGNESIUM (BEAKER) (test pras=372) 1.8 mg/dL 1.6-2.6 [id number] 00:21:00 Test Item Value Reference Range Comments PHOSPHORUS (BEAKER) (test msjv=752) 3.0 mg/dL 2.3-4.7 CBC W/PLT COUNT & AUTO [id number] 23:54:00 Test Item Value Reference Range Comments WHITE BLOOD CELL COUNT (BEAKER) (test jbam=211) 5.3 K/ L 3.5-10.5 RED BLOOD CELL COUNT (BEAKER) (test dbjs=113) 3.95 M/ L 4.63-6.08 HEMOGLOBIN (BEAKER) (test gkrb=533) 11.4 GM/DL 13.7-17.5 HEMATOCRIT (BEAKER) (test xzyt=381) 34.7 % 40.1-51.0 MEAN CORPUSCULAR VOLUME (BEAKER) (test eort=450) 87.8 fL 79.0-92.2 MEAN CORPUSCULAR HEMOGLOBIN (BEAKER) (test 28.9 pg 25.7-32.2 ibxd=863) MEAN CORPUSCULAR HEMOGLOBIN CONC (BEAKER) (test 32.9 GM/DL 32.3-36.5 istv=117) RED CELL DISTRIBUTION WIDTH (BEAKER) (test 13.8 % 11.6-14.4 kwxi=204) PLATELET COUNT (BEAKER) (test mbqm=651) 236 K/CU MM 150-450 MEAN PLATELET VOLUME (BEAKER) (test uxua=362) 8.9 fL 9.4-12.4 NUCLEATED RED BLOOD CELLS (BEAKER) (test 0 /100 WBC 0-0 pmfi=149) NEUTROPHILS RELATIVE PERCENT (BEAKER) (test 67 % xvjm=639) LYMPHOCYTES RELATIVE PERCENT (BEAKER) (test 13 % uqzh=001) MONOCYTES RELATIVE PERCENT (BEAKER) (test 16 % ovah=244) EOSINOPHILS RELATIVE PERCENT (BEAKER) (test 4 % fsmn=517) BASOPHILS RELATIVE PERCENT (BEAKER) (test 0 % rfoe=625) NEUTROPHILS ABSOLUTE COUNT (BEAKER) (test 3.56 K/ L 1.78-5.38 wkxh=719) LYMPHOCYTES ABSOLUTE COUNT (BEAKER) (test 0.69 K/ L 1.32-3.57 zfxm=772) MONOCYTES ABSOLUTE COUNT (BEAKER) (test 0.83 K/ L 0.30-0.82 pjsl=104) EOSINOPHILS ABSOLUTE COUNT (BEAKER) (test 0.19 K/ L 0.04-0.54 gevw=289) BASOPHILS ABSOLUTE COUNT (BEAKER) (test 0.01 K/ L 0.01-0.08 hout=720) IMMATURE GRANULOCYTES-RELATIVE PERCENT (BEAKER) 1 % 0-1 (test akav=3163) CALCIUM, [id number] 23:46:00 Test Item Value Reference Range Comments CALCIUM IONIZED (BEAKER) (test hkay=233) 1.15 mmol/L 1.12-1.27 PH, BLOOD (BEAKER) (test xrwx=5179) 7.41
--- OUTSIDE RECORDS SUMMARY | 2018-12-03 14:12 | XMS REPORT | Summary of Care ---
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 fever ) 8th Floor; [address] [place] [address] [place] [phone] [address] [phone] Allergies Active Allergy Reactions Severity Noted Date Comments Seafood Itching 11/06/2018 Itching severely in the throat documented as of this encounter (statuses as of 11/07/2018) Medications Medication Sig Dispensed Refills Start Date End Date Status ciprofloxacin Take 1 Tab 60 Tab 0 11/06/2018 Active (CIPRO) 750 MG by mouth tablet every 12 hours. sulfamethoxazole-tri Take 1 Tab 60 Tab 0 11/06/2018 Active methoprim (BACTRIM by mouth two DS) 800-160 MG per times daily. tablet ciprofloxacin Take 750 mg 0 11/06/2018 Discontinued (CIPRO) 750 MG by mouth tablet every 12 hours. sulfamethoxazole-tri Take 1 Tab 0 11/06/2018 Discontinued methoprim (BACTRIM by mouth two DS) 800-160 MG per times daily. tablet documented as of this encounter (statuses as of 11/07/2018) Active Problems Not on filedocumented as of this encounter (statuses as of 11/07/2018) Social History Tobacco Use Types Packs/Day Years Used Date Never Smoker Smokeless Tobacco: Never Used Alcohol Use Drinks/Week oz/Week Comments Never Alcohol Habits Answer Date Recorded How often do you have a drink containing alcohol? Never 11/06/2018 How many drinks containing alcohol do you [...] Travel End No recent travel history available. documented as of this encounter Last Filed Vital Signs Vital Sign Reading Time Taken Comments Blood Pressure 98/63 11/06/2018 11:42 AM CDT Pulse 86 11/06/2018 11:42 AM CDT Temperature 36.4 C (97.6 F) 11/06/2018 11:42 AM CDT Respiratory Rate 18 11/06/2018 11:42 AM CDT Oxygen Saturation 98% 11/06/2018 11:42 AM CDT Inhaled Oxygen Concentration - - Weight - - Height - - Body Mass Index - - documented in this encounter Patient Instructions Patient InstructionsAlbertina Mccarty NP - 11/06/2018 11:30 AM CDTThank you choosing the Infectious Diseases clinic at [facility]. Please let us know what we can do better by providing comments on the survey you will receive. We value your feedback! Here are some helpful general instructions: 1. If you have not already done so, we encourage you to sign up for [employer] as it is a very efficient way to contact the Infectious Diseases team for non- emergent questions / requests. 2. Labs and X-rays can be performed / scheduled in our clinic on the 8th floor. Results will be provided to you either through [employer] or a personal communication (letter or phone call) from the Infectious Diseases team. 3. For medication refills, please contact your pharmacy one week before you run out of medications. 4. Please go to the front end java developer on your way out today to schedule your next appointment 5. If you have questions after your visit, please contact us in one of the following ways: For non-emergent questions / requests: [employer] message For appointments: For clinical matters: ; you will be asked to leave a message and our team will callyou back as soon as possible, and definitely within 1 business day. For emergent clinical issues: please call 911 or go to the emergency room. To send in clinical records: please use the fax number at . Please see below for specific information related to your diagnosis or symptoms. We appreciate the opportunity to take part in your care. Continue taking Cipro and Bactrim DS until removal of bilateral kidney stones Refill sent to your pharmacy Follow up with Dr. Mar (urology) RTC PRN documented in this encounter Progress Notes Albertina Mccarty NP - 11/06/2018 11:30 AM CDT Albertina Mccarty, MSN, AGNP-C Section of Infectious Diseases [address] [place] [address] email: [email or web address] Date: 11/07/18 Patient Name: Neo Austin Patient Date of : 1985 Chief Complaint: Chief Complaint Patient presents with [facility] Care pt states over the past 3 days he has had a fever RFC: Hospital follow up REQUESTED BY: No ref. provider found Subjective History of Present Illness: 33 yo male with hx quadriplegia, asthma and recurrent UTI's who is currently admitted with bilateral obsructing stones s/p nephrostomy tube placement, also with urosepsis with MDR pseudomonas and Morganell morganii. ID consulted for antimicrobial management. - Seems to be improving clinically, despite still having nightly fevers. - Increase ciprofloxacin to 750 mg PO BID and add Bactrim DS PO BID for treatment of Morganella. Stop Meropenem. - Will need removal of bilateral stones while on antibiotics therapy to avoid recurrent episode of sepsis. Cure will not be achieved regardless of duration of antibiotics unless the stones are removed. - Repeat blood cultures. 11/06/2017: Presents in clinic today with spouse for post hospital follow up. Currently on oral Ciproand Bactrim DS. Clinically stable, denies fever, chills, dysuria, urgency, frequency, hematuria or flank pain. Plan is to have kidney stones removed while on antibiotics to avoid recurrent sepsis. He is scheduled to see Dr. Garcia (urology) tomorrow. Patient is uninsured, paying out of pocket for visit. Current Medications: Current Outpatient Medications: ciprofloxacin (CIPRO) 750 MG tablet, Take 1 Tab by mouth every 12 hours., Disp: 60 Tab, Rfl: 0 sulfamethoxazole-trimethoprim (BACTRIM DS) 800-160 MG per tablet, Take 1 Tab by mouth two timesdaily., Disp: 60 Tab, Rfl: 0 Allergies: Allergies Allergen Reactions Seafood Itching Itching severely in the throat Past Medical History: Past Medical History: Diagnosis Date Asthma Low blood pressure Past Surgical History: Past Surgical History: Procedure Laterality Date HX KIDNEY CYST REMOVAL HX SPINE SURGERY Social History: Social History Tobacco Use Smoking status: Never Smoker Smokeless tobacco: Never Used Substance Use Topics Alcohol use: Never Frequency: Never Family History: family history is not on file. Review of Systems Review of Systems Constitutional: Negative. HENT: Negative. Eyes: Negative. Cardiovascular: Negative. Gastrointestinal: Negative. Genitourinary: Negative. Musculoskeletal: Negative. Skin: Negative. Neurological: Negative. Endo/Heme/Allergies: Negative. Psychiatric/Behavioral: Negative. Examination: BP 98/63 | Pulse 86 | Temp 97.6 F (36.4 C) (Oral) | Resp 18 | SpO2 98% Physical Exam Physical Exam Constitutional: He is oriented to person, place, and time. He appears well- developed and well-nourished. HENT: Head: Normocephalic and atraumatic. Eyes: Pupils are equal, round, and reactive to light. EOM are normal. Neck: Normal range of motion. Neck supple. Cardiovascular: Normal rate and regular rhythm. Pulmonary/Chest: Breath sounds normal. Abdominal: Soft. Bowel sounds are normal. Musculoskeletal: Normal range of motion. wheelchair bound Neurological: He is alert and oriented to person, place, and time. Skin: Skin is warm and dry. Psychiatric: He has a normal mood and affect. His behavior is normal. Data: Laboratory Testing: Microbiology: Microbiology Results (last 7 days) Procedure Component Value Units Date/Time Blood Culture - Routine (Right Venipuncture) [[id number]] Collected: 1804 Order Status: Sent Specimen: Blood from Arm, Right Updated: 10/11/181827 Blood Culture - Routine (Left Venipuncture) [[id number]] Collected: 10/11/181803 Order Status: Sent Specimen: Blood from Arm, Left Updated: 10/11/181822 Urine culture [[id number]] (Abnormal) (Susceptibility) Collected: 10/05/181954 Order Status: Completed Specimen: Urine, Nephrostomy Updated: 10/10/18 0948 Result >100,000 col/mL Pseudomonas aeruginosa Comment: This is an appended report. These organism results have been appended to a previously final verified report. >100,000 col/mL Morganella morganii Comment: of a second type This is an appended report. These organism results have been appended to a previously final verified report. >100,000 col/mL Pseudomonas aeruginosa Comment: of a second type Narrative: Blood Culture - Routine (Left Venipuncture) [[id number]] Collected: 10/05/18 0025 Order Status: Completed Specimen: Blood from Arm, Left Updated: 10/10/18 0801 Result No growth in 5 days Blood Culture - Routine (Right Venipuncture) [[id number]] Collected: 2329 Order Status: Completed Specimen: Blood from Arm, Right Updated: 10/10/18 0801 Result No growth in 5 days Urine culture [[id number]] Collected: 10/04/18 2330 Order Status: Completed Specimen: Urine, Voided Updated: 10/06/18 1651 Result See comment Narrative: <10,000 col/mL Gram negative rods Body fluid culture + gram stain [[id number]] Collected: 10/05/181955 Order Status: Canceled Specimen: Body Fluid from Nephrostomy, Left Updated : 10/05/182032 Body fluid culture + gram stain [[id number]] Order Status: Canceled Specimen: Body Fluid from BAKARI Drain Radiology Studies: Reviewed in Epic Impression: This is 33 y.o. male with ICD-10-CM 1. Sepsis secondary to UTI A41.9 N39.0 2. Bilateral nephrolithiasis N20.0 Plan: Continue Cipro and Bactrim DS until stones are removed Refill Cipro and Bactim DS F/u with Dr. Mar (urology) as scheduled tomorrow 11/07/18 Recommends to go to ER if develops any signs or symptoms of systemic infection such as fever, chills, N/V, malaise or fatigue COUNSELING TIME >50% of visit: 25 minutes The plan was discussed with the patient who verbalized understanding. Thank you for referring this patient for consultation and allowing me to participate in his care. Please do not hesitate to call with any questions. Albertina Mccarty, MSN, AGNP-C Nurse Practitioner [facility] Infectious Diseases [phone] 11/07/2018 4:01 PM documented in this encounter Plan of Treatment Health Maintenance Due Date Last Done Comments TETANUS SHOT (ADULT) 2001 HIV SCREENING 2004 FLU VACCINE > 6 MONTHS 10/18/2018 documented as of this encounter Results Not on filedocumented in this encounter Visit Diagnoses Diagnosis Sepsis secondary to UTI - Primary Urinary tract infection, site not specified Bilateral nephrolithiasis documented in this encounter"
--- OUTSIDE RECORDS SUMMARY | 2018-12-03 14:12 | XMS REPORT | Summary of Care ---
:1985 Author Organization [facility] Address [address] [place] [id number] Care Team Providers Name Role Phone Unavailable Primary Care Provider Unavailable Reason for Referral Radiology Services (Routine) Status Reason Specialty Diagnoses / Referred By Referred To Procedures Contact Contact Patient Radiology Diagnoses Hydronephrosis with urinary obstruction due to renal calculus Main location aware Arrive 15 min prior Hydrate Negro Mar Nm Imaging Responsible Procedures NM KIDNEY W FLOW AND FUNCTION WO PHARMACOLOGICAL INTERVENTION MD Janie [address] [place] [address] [place], [place] [address] [facility], [address] [address] Phone: [place], [place] [phone] Fax: Reason for Visit Reason Comments Medical Concern Encounter Details Date Type Department Care Team Description 11/07/2018 Office Visit [facility] Negro Mar MD Medical Concern Medicine Urology [address] [place] [address] [address] FLO[address], [address], [place] [address] [place] [address] Allergies Active Allergy Reactions Severity Noted Date Comments Seafood Itching 11/06/2018 Itching severely in the throat documented as of this encounter (statuses as of 11/14/2018) Medications Medication Sig Dispensed Refills Start Date End Date Status ciprofloxacin (CIPRO) Take 1 Tab by 60 Tab 0 11/06/2018 Active 750 MG tablet mouth every 12 hours. sulfamethoxazole-trimeth Take 1 Tab by 60 Tab 0 11/06/2018 Active oprim (BACTRIM DS) mouth two times 800-160 MG per tablet daily. documented as of this encounter (statuses as of 11/14/2018) Active Problems No known active problemsdocumented as of this encounter (statuses as of 2018) Social History Tobacco Use Types Packs/Day Years [...] Sign Reading Time Taken Comments Blood Pressure 94/61 11/07/2018 1:28 PM CDT Pulse 96 11/07/2018 1:28 PM CDT Temperature - - Respiratory Rate - - Oxygen Saturation - - Inhaled Oxygen Concentration - - Weight 79.4 kg (175 lb) 11/07/2018 1:28 PM CDT Height 170.2 cm (5' 7") 11/07/2018 1:28 PM CDT Body Mass Index 27.41 11/07/2018 1:28 PM CDT documented in this encounter Progress Notes Anisha Hall CMA - 11/07/2018 1:30 PM CDT HPI Review of Systems Constitutional: Negative. HENT: Negative. Eyes: Negative. Respiratory: Negative. Cardiovascular: Negative. Gastrointestinal: Negative. Endocrine: Negative. Genitourinary: Negative. Musculoskeletal: Negative. Skin: Negative. Allergic/Immunologic: Negative. Neurological: Negative. Hematological: Negative. Psychiatric/Behavioral: Negative. Physical Exam Negro Crawford MD - 11/07/2018 1:00 PM CDT Neo Austin is a 32 y.o. male hx quadriplegia, asthma, and recurrent UTI 'snow with L staghorn calculus and XGP and R 1 cm obstructing stone with mild hydronephrosis and air who presented withurosepsis to [facility]. He was treated with an extensive course of antibiotics and is followed by the ID service. He is now on cipro and bactrim awaiting stone removal. He had bilateral PCN placed 10/05 and purulent urine was drained from the left kidney. We recommended a functional renal scan but this was not completed. The patient is uninsured and is not a [facility] resident so has been unable to receive Gold Card. 10/05 PCN cx w/ enteric organisms + Pseudomonas. Most recent urine culture negative. 10/05 urine culture: Result >100,000 col/mL Pseudomonas aeruginosa Abnormal This is an appended report. These organism results have been appended to a previously final verified report. >100,000 col/mL Morganella morganii Abnormal of a second type This is an appended report. These organism results have been appended to a previously final verified report. >100,000 col/mL Pseudomonas aeruginosa Abnormal of a second type Susceptibility Pseudomonas aeruginosa Morganella morganii Pseudomonas aeruginosa Not Specified Not Specified Not Specified Amikacin <=8 S 8 S <=8 S Ampicillin + Sulbactam >=32 R Aztreonam 4 S >=64 R 16 R Cefepime <=4 S >=64 R <=4 S Cefoxitin >=64 R Ceftazidime 2 S >=64 R 4 S Ceftriaxone >=64 R Ciprofloxacin <=0.5 S <=0.5 S Doripenem 4 R <=0.5 S Ertapenem <=0.5 S Gentamicin <=2 S >=16 R <=2 S Imipenem >8 R 4 R Levofloxacin <=1 S >=8 R <=1 S Meropenem 8 R 2 S <=0.5 S Nitrofurantoin R Piperacillin <16 S <=16 S Piperacillin + Tazobactam <=8 S 32 R 16 S Tetracycline >=16 R Tobramycin <=2 S >=16 R <=2 S Trimethoprim + Sulfamethoxazole <=20 S Lab and Collection Review of imagin - 1.5 cm right renal stone, large stone burden on the left with thinned out parenchyma and possible XGP. Large bladder stone. Since discharge from the hospital: he has been doing well on his current antibiotic regimen. He has not had additional imaging. Past Medical History: Diagnosis Date Asthma Low blood pressure Past Surgical History: Procedure Laterality Date HX KIDNEY CYST REMOVAL HX SPINE SURGERY Allergies Allergen Reactions Seafood Itching Itching severely in the throat Current Outpatient Medications: ciprofloxacin (CIPRO) 750 MG tablet, Take 1 Tab by mouth every 12 hours., Disp: 60 Tab, Rfl: 0 sulfamethoxazole-trimethoprim (BACTRIM DS) 800-160 MG per tablet, Take 1 Tab by mouth two timesdaily., Disp: 60 Tab, Rfl: 0 Social History Tobacco Use Smoking status: Never Smoker Smokeless tobacco: Never Used Substance Use Topics Alcohol use: Never Frequency: Never Drug use: Never Review of Systems Constitutional: Negative. HENT: Negative. Eyes: Negative. Respiratory: Negative. Cardiovascular: Negative. Negative for chest pain, palpitations and leg swelling. Gastrointestinal: Negative. Negative for nausea, vomiting, abdominal pain, diarrhea, constipation, blood in stool, abdominal distention, anal bleeding and rectal pain. Genitourinary: Negative for dysuria, urgency, frequency, hematuria, flank pain, decreased urine volume, penile discharge, penile swelling, scrotal swelling, enuresis, difficulty urinating, genital sore, penile pain and testicular pain. Musculoskeletal: Negative. Skin: Negative. Neurological: Negative. Hematological: Negative. Psychiatric/Behavioral: Negative. All other systems reviewed and are negative. Physical Exam Constitutional: He is oriented. He appears well-developed and well-nourished. Head: Normocephalic and atraumatic. Eyes: Pupils are equal, round, and reactive to light. Neck: Normal range of motion. Neck supple. Cardiovascular: Normal rate. Pulmonary/Chest: Effort normal and breath sounds normal. No respiratory distress. Abdominal: Soft. He exhibits no distension and no mass. No tenderness. He has no rebound and no guarding. Bilateral PCN in place and draining well. Musculoskeletal: Normal range of motion. Neurological: He is alert and oriented. Skin: Skin is warm and dry. Psychiatric: He has a normal mood and affect. Behavior is normal. Judgment and thought content normal. A/P: 33 y.o. male with bilateral renal stones and recent sepsis. Now on culture specific antibioticsand will need his stones removed. Needs renal scan to document function of this left kidney which appears significantly compromised and may represent XGP. Once renal scan results are available, we can plan further surgery which will likely be bilateral PCNL. Patient's lack of insurance coverage appears to be a major issue here and he is also pursuing a possible gold card for care at [facility]. 1. Needs mag3 renal scan with lasix. 2. Follow up after results available. documented in this encounter Plan of Treatment Date Type Specialty Care Team Description 11/14/2018 Ancillary Procedure Radiology Name Type Priority Associated Diagnoses Order Schedule NM KIDNEY W FLOW AND Imaging Routine Hydronephrosis with 1 Occurrences FUNCTION WO urinary obstruction due starting 11/07/2018 PHARMACOLOGICAL to renal calculus until 05/10/2020 INTERVENTION Health Maintenance Due Date Last Done Comments TETANUS SHOT (ADULT) 2001 BMI FOLLOW UP PLAN 2004 HIV SCREENING 2004 FLU VACCINE > 6 MONTHS 10/18/2018 documented as of this encounter Results Not on filedocumented in this encounter Visit Diagnoses Diagnosis Hydronephrosis with urinary obstruction due to renal calculus - Primary documented in this encounter
[2018-12-03] MEDS ORDERED: NA CHLORIDE 0.9% 2,000 ML ONE (15:08)
[2018-12-03] MEDS ORDERED: CEFEPIME/SWI 2gm 2 GM/20 ML SYR IV ONE (15:30)
[2018-12-03] MEDS ORDERED: VANCOMYCIN/NS 1 gm 1 GM/250 ML BAG IV ONE (15:30)
[2018-12-03 15:32] LABS: Absolute Lymphocytes (CBC) 1.5 K/uL (0.7-4.9); Basophils % 0.3 % (0-1.3); Hematocrit 34.6 % (39.6-49.0); Lymphocytes % 16.3 % (15.3-44.8); MPV 7.3 fL (7.6-11.3); RBC Red Blood Cell Count 4.36 M/uL (4.33-5.43)
--- NOTE | 2018-12-03 15:45 | RAD REPORT ---
EXAM DESCRIPTION: CT - Stone Protocol - 12/03/2018 3:26 pm CLINICAL HISTORY: Flank pain. ABD PAIN COMPARISON: Abdomen Pelvis Wo Contrast dated 10/04/2018 TECHNIQUE: Axial images were obtained without oral or IV contrast. Lack of contrast limits solid org an and vascular assessment. The [id number] spans the entirety of the system partially obscuring uppermost abdomen and lung bases. Coronal reformatted images were obtained and reviewed. All CT scans are performed using dose optimization technique as appropriate and may include automated exposure control or mA/KV adjustment according to patient size. FINDINGS: The lower lung miller are clear. Imaged portions of the liver and spleen show no suspicious findings on non-contrast imaging. The panc reas and adrenal glands are normal. No pathologic lymphadenopathy in the abdomen or pelvis. Bilateral percutaneous nephrostomy tubes noted. 18 mm stone is present in the left renal pelvis with mild to moderate dilatation of the left collecting system seen, mildly improved since the prior study . Small calculus is seen in the posterior inferior left renal calyx. 10 mm calculus is present in the right renal pelvis. 23 mm bladder calculus. No bowel obstruction, free air, free fluid or abscess. Large amount of stool is present in the colon. Normal appendix. No significant bony abnormality. IMPRESSION: Bilateral percutaneous nephrostomy tubes are in place. A large stone is present in the left renal pelvis measuring 18 mm. 10 mm stone is also present the right renal pelvis. 23 mm bladder calculus. Significant fecal retention.
[2018-12-03 15:50] LABS: ALT/SGPT 22 U/L (12-78); AST/SGOT 13 U/L (15-37); Albumin 3.9 g/dL (3.4-5.0); Alkaline Phosphatase 102 U/L (45-117); BUN Blood Urea Nitrogen 17 mg/dL (7-18); Bicarbonate 25 mmol/L (21-32); Bilirubin Direct 0.2 mg/dL (0-0.2); Bilirubin Total 0.6 mg/dL (0.2-1.0); Glucose Level 128 mg/dL (74-106); Lipase 85 U/L (73-393); Magnesium 2.3 mg/dL (1.8-2.4); NT PRO-BNP 62 pg/mL (<125); Potassium 3.9 mmol/L (3.5-5.1); Protein, Total 8.6 g/dL (6.4-8.2); Sodium Level 135 mmol/L (136-145); Troponin (Emerg Dept Use Only) < 0.02 ng/mL (0.0-0.045)
[2018-12-03 16:42] LABS: Protime INR 1.32
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
--- NOTE | 2018-12-03 16:56 | EKG ---
Test Date: 2018-12-03 Test Time: 15:14:55 Abalone Diver: JOSE/S MEASUREMENT RESULTS: Intervals: Rate: 74 MA: 174 QRSD: 88 QT: 388 QTc: 430 [place]: P: 48 MA: 174 QRS: 85 T: 62 INTERPRETIVE STATEMENTS: Normal sinus rhythm Normal ECG Compared to ECG 10/04/2018 16:27:54 Sinus tachycardia no longer present T-wave abnormality no longer present Electronically Signed On 12-03-18 16:55:26 CDT by Chad Stein
--- NOTE | 2018-12-03 17:00 | RAD REPORT ---
EXAM DESCRIPTION: RAD - Chest Single View - 12/03/2018 4:42 pm CLINICAL HISTORY: COUGH Chest pain. COMPARISON: Chest Single View dated 10/04/2018 FINDINGS: Portable technique limits examination quality. The lungs are grossly clear. The heart is normal in size. No displaced fractures. IMPRESSION: No acute intrathoracic process suspected.
[2018-12-03 20:01] VITALS: BP 121/79; TEMP 98; O2SAT 97
== END 2018-12-03 19:46 | disposition short-term general hospital (02) ==
LOC: ER 14:07
DX: N13.2 Hydronephrosis with renal and ureteral calculous obstruction (principal); Z93.6 Other artificial openings of urinary tract status
CPT/HCPCS: 36415; 71045; 74176; 76377; 80048; 80076; 83605; 83690; 83735; 83880; 84145; 84484; 85025; 85610; 87040; 93005; 96374; 96375; 99285; J0692; J3370; J7030